=== PATIENT | female | born 1955 | race Caucasian/White ===

== ENCOUNTER → 2020-11-13 08:40 | Outpatient (BNVA) | payer OTHER, SELFPAY | PROVIDERS: PCP Internal Medicine; Visit Provider Hospitalist | DX: J41.8 Mixed simple and mucopurulent chronic bronchitis (principal); A31.9 Mycobacterial infection, unspecified; R91.8 Other nonspecific abnormal finding of lung field | CPT/HCPCS: 99212 ==

== ENCOUNTER → 2021-03-22 09:01 | Outpatient (BNVA) | payer OTHER, SELFPAY | PROVIDERS: PCP Internal Medicine; Visit Provider Hospitalist | DX: R91.8 Other nonspecific abnormal finding of lung field (principal); J41.8 Mixed simple and mucopurulent chronic bronchitis; A31.9 Mycobacterial infection, unspecified | CPT/HCPCS: 99212 ==

== ENCOUNTER 2021-07-23 08:45 | Outpatient (REF) | payer OTHER, SELFPAY ==
--- NOTE | 2021-07-23 10:26 | PFT_ITS ---
FLOWS: FEV1 48% of predicted at 1.12 L. FVC 90% of predicted at 2.75 L. FEV1 to FVC ratio of 0.41. No bronchodilator response. LUNG VOLUMES: Total lung capacity 124% of predicted at 6.11 L. Residual volume 167% of predicted at 3.39 L. Slow vital capacity 94% of predicted at 2.72 L. Expiratory reserve volume 98% of predicted at 0.74 L. Diffusion capacity is moderately decreased. In comparison to pulmonary function test from September of 2019, FEV1 and ERV have been without significant changes; FVC has increased by 0.22 L; total lung capacity has increased by 1.38 L; residual volume has increased by 0.88 L; slow vital capacity has increased by 0.50 L; diffusion capacity has increased by 0.30 mL/minutes/mmHg. IMPRESSION: Severe obstructive ventilatory defect with no bronchodilator response. Increased total lung capacity suggests hyperinflation. Increased residual volume suggests air trapping. Decreased diffusion capacity suggests emphysema. MD MARIO Marshall/MODL / [id number]
== END 2021-07-23 08:46 | disposition home or self-care (01) ==
LOC: HO.RESP 08:45
PROVIDERS: PCP Internal Medicine; Visit Provider Hospitalist
DX: J41.8 Mixed simple and mucopurulent chronic bronchitis (principal)
CPT/HCPCS: 94060; 94727; 94729

== ENCOUNTER → 2021-08-23 09:39 | Outpatient (BNVA) | payer OTHER, SELFPAY | PROVIDERS: PCP Internal Medicine; Visit Provider Hospitalist | DX: J41.8 Mixed simple and mucopurulent chronic bronchitis (principal); R91.8 Other nonspecific abnormal finding of lung field; A31.9 Mycobacterial infection, unspecified | CPT/HCPCS: 99212 ==

== ENCOUNTER → 2021-12-21 08:35 | Outpatient (BNVA) | payer MEDICARE, MEDICAID, SELFPAY | PROVIDERS: PCP Internal Medicine; Visit Provider Hospitalist | DX: Z01.811 Encounter for preprocedural respiratory examination (principal); J41.8 Mixed simple and mucopurulent chronic bronchitis; A31.9 Mycobacterial infection, unspecified | CPT/HCPCS: 99212 ==

== ENCOUNTER → 2022-06-14 09:44 | Outpatient (BNVA) | payer MEDICARE, MEDICAID, SELFPAY | PROVIDERS: PCP Internal Medicine; Visit Provider Hospitalist | DX: J44.0 Chronic obstructive pulmonary disease with (acute) lower respiratory infection (principal); A31.9 Mycobacterial infection, unspecified | CPT/HCPCS: 99212 ==

== ENCOUNTER → 2022-12-06 08:44 | Outpatient (BNVA) | payer OTHER, SELFPAY | PROVIDERS: PCP Internal Medicine; Visit Provider Hospitalist | DX: J44.0 Chronic obstructive pulmonary disease with (acute) lower respiratory infection (principal); A31.9 Mycobacterial infection, unspecified; Z79.899 Other long term (current) drug therapy | CPT/HCPCS: 99212 ==

== ENCOUNTER 2023-11-18 | Outpatient (REF) | payer OTHER, SELFPAY ==
[2023-11-18 08:16] VITALS: PULSE 86; RESP 14; O2SAT 97
--- NOTE | 2023-11-18 10:32 | PFT_ITS ---
Flows: FEV1: 49 % of predicted at 1.09 L FVC: 92 % of predicted at 2.60 L FEV1/FVC: 42 % Bronchodilator response: Absent Volumes: Lung volume measurements incorrect secondary to patient unable to maintain a tight seal on the mouthpiece. Diffusion capacity: Moderately decreased, adjusts to being mildly decreased after correction for alveolar ventilation. Impression: Severe obstructive ventilatory defect with no bronchodilator response. Decreased diffusion capacity suggests emphysema. MTDD
== END 2023-11-18 00:01 | disposition home or self-care (01) ==
LOC: HO.RESP
PROVIDERS: PCP Internal Medicine; Visit Provider Hospitalist
DX: J44.0 Chronic obstructive pulmonary disease with (acute) lower respiratory infection (principal)
CPT/HCPCS: 94010; 94640; 94727; 94729

== ENCOUNTER → 2023-11-18 10:32 | Outpatient (BNV) | payer OTHER, SELFPAY | PROVIDERS: PCP Internal Medicine; Visit Provider Internal Medicine Pulmonary Disease | DX: J44.0 Chronic obstructive pulmonary disease with (acute) lower respiratory infection (principal) | CPT/HCPCS: 94060; 94727; 94729 ==

== ENCOUNTER 2023-12-05 13:54 | Outpatient (AMB) | payer OTHER, SELFPAY ==
--- NOTE | 2023-12-05 14:03 | MHC.OFFVIS ---
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 Hybrid Technologist: Hybrid Technologist offered & declined Accompanied by: Spouse Allergies cephalexin [Keflex] Allergy (Severe, Verified 12/05/23 14:09) Body Aches penicillin V Allergy (Severe, Verified 12/05/23 14:09) Convulsion Medication List - Last Reconciled 12/05/23 by Danyelle Sifuentes LPN albuterol sulfate 90 mcg/actuation 2 puffs inhalation Q6H PRN albuterol sulfate 2.5 mg (3 mL) inhalation Q4-6H PRN fluticasone propionate 50 mcg/actuation (Flonase Allergy Relief) 2 sprays intranasal DAILY 90 days lisinopril 2.5 mg PO DAILY lisinopril 10 mg PO DAILY lorazepam 0.5 mg PO DAILY PRN lovastatin 40 mg PO BEDTIME meclizine 12.5 mg PO TID metoprolol succinate ER 25 mg PO DAILY nebulizers As directed omeprazole 20 mg PO BID Symbicort 160-4.5 mcg/actuation (budesonide-formoterol) 2 puffs PO BID NS tiotropium bromide 2.5 mcg/actuation (Spiriva Respimat) 2 puffs inhalation DAILY 90 days HPI HPI Comments History of Present Illness Details Patient is a 68 y/o woman with a history of COPD, pulmonary nodules and nontuberculous mycobacteria infection. She is status post resection in now with no evidence of any recurrence. She still has some chest discomfort at the site of the surgery on her right side. She did have a pneumothorax that was therefore a significant amount of time after surgery. Now has resolved. She is feeling better. She is no longer requiring the neb treatments. Will try to place her back in inhalers. However, she does not do well with inhaled cortical steroids at a powdered. She gets irritation of the throat and other side effects. Therefore, will have to place her HFA formulation. She has done well Symbicort in the past. She has failed Advair and felt Breo as well as other powder inhalers. Her CT scan of the chest was done we did reviewed in the office. It appears that she does have the severe emphysema primarily upper lung zone in mid lung predominant but still preserving her bases specially on the right. No new nodules appreciated. Her surgical area appears to be completely healed. She still having some pain at that site however. 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 She continues her respiratory therapy. She is maintaining her weight 114. She continues to have a good appetite. This point the patient is being evaluated for parathyroid issues. From pulmonary standpoint I do believe she can handle general anesthesia but the patient does have high risk for perioperative pulmonary complications which include which hypoxia, atelectasis, prolonged mechanical ventilation and pneumonia. Therefore, based on the fact that she is still recovering from her other surgeries my 1st recommendation is for her to avoid surgery if possible. If however surgery is a necessity, then, she is medically optimized from a respiratory status. 12/12/2019 The patient is here for pulmonary follow-up visit. Overall she continues to do well. Denies any shortness of breath at rest. Mild dyspnea on exertion. Denies any significant coughing or any mucus production. She continues on the respiratory therapy. She continues to gain weight. Still has some aching as on the right hemithorax from her surgical site. She did have a CT scan of the chest done at [facility] part of the lung cancer screening program. The did document some small pulmonary nodules. At this point she is going to have a repeat CT scan a year. Otherwise the patient is without any other complaints. 06/16/2020 the patient is here for pulmonary follow-up visit. Overall she is doing okay. She is coughing more lately. Hgae-vj-[id number] severity. Her sputum is clear. She is exercising walking regularly. We again reviewed her pulmonary function studies done demonstrating severe COPD. She definitely does a very well even with the degree of obstruction. 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 She is per the lung cancer screening program and is scheduled for her next CAT scan in October 2020. Will plan to follow up with her after that. In the meantime she continues use Symbicort twice a day in addition to having a rescue inhaler. However, she does not need it. We did talk about plain the Harmonic in order to strong her respiratory muscles. She is going to look into it. 11/13/2020 the patient is here for pulmonary follow-up visit. Overall the patient has been doing okay. She has been complaining of increasing chest congestion and cough. Zioz-[id number] severity. More than before. She also has a little bit increasing shortness of breath. She feels like she is progressing a little bit. She did recently have a CT scan of the chest done at [facility]. Per report she was sent a letter stating that everything was okay. She is scheduled to have a repeat CT scan in a year's time. I will request a copy of the CT scan to look at myself. In the meantime she can be reassured that her CT scan is stable. She does have small pulmonary nodules are still need follow-up. The patient has not noticed any weight loss or any night sweats. I did request that she can try to mild sputum response but she is not able to this time. Will treat her with medication. If the patient continues to have respiratory symptoms will try to get a sputum sample. No evidence of any active mycobacteria infection at this time. 03/22/2021 the patient is here for pulmonary follow-up visit. Overall she is complaining of dyspnea on exertion. Pdme-gf-ssgsyggx severity. Seems to be getting worse. Her congestion has improved. She did complete 3 months of the azithromycin and she has no longer taking it. She continues on the Symbicort which she takes twice a day with a spacer. She finds it very helpful. On examination she does have increased chest tightness and a prolonged expiratory phase. We did talk about pursed the breathing. At this point will have to optimize her respiratory capacity. We did go for brief walking oximetry with the patient maintain a pulse ox 97% with activity in the heart rate did increase to 105 beats per minute. She did have a dyspnea score of for out of 10. patient does not need supplementation with oxygen at this time. we did review her CT scan from October 2020 demonstrating extensive emphysema as well as stable nodules. She will have a repeat CT scan October of 2021. 08/23/2021 the patient is here for a pulmonary follow-up visit. Overall the patient has been doing okay. She has been off the azithromycin. She has noticed increased chest congestion. The mucus is clear. Her weight has been okay although she lost a few lb. Her appetite is still good. She is concerned about the potential mycobacteria infection. We did review her pulmonary function studies. Appears that she still has severe COPD although, based on her PFTs from last year she has a trend improvement in her lung capacity which is reassuring. That being said with her increased cough in the slightly weight loss is not on reasonable to go back on the azithromycin therapy. The patient is due for CT scan in October 2021. Will follow-up sometime after that. 12/21/2021 the patient is here for a pulmonary follow-up visit. Overall she is doing well. She has been off the azithromycin. She did have a CT scan of the chest which we reviewed in the office. It appears that she does not have any suspicious nodules which is reassuring specially off the antibiotic. She does have severe emphysema and she is aware that. She does continue to stay active and try to exercise regularly. However, we talked about the importance of building up her respiratory capacity. Therefore I recommend she consider getting her manic on starting to use it for her respiratory muscle endurance. She continues to be adherent to her respiratory regimen. No plans for any changes at this time. She is scheduled to undergo a parathyroidectomy at [facility]. At this moment the patient is medically optimized from a respiratory status. She does have severe COPD therefore does have increased risk for perioperative pulmonary complications which includes; atelectasis, hypoxia, pneumonia and prolonged mechanical ventilation. At this point the patient has been developing significant osteoporosis and requires surgery for her bone health and physical health in the benefits of surgery outweigh the risks. The patient is able to consent from surgery from a pulmonary standpoint at this time. 06/14/2022 the patient is here for pulmonary follow-up visit. The patient is overall doing well. She had her surgery and she very well. However, in March she developed COVID-19. She started developing a cough. Now her cough persists will productive in nature moderate severity. The white phlegm. Denies any hemoptysis. Her examination demonstrates some wheezing. She would like to hold off on any prednisone. Will go ahead and treated for postviral bacterial infection. But I hear any crackles to be concerned about. She has prior the lung cancer screening program. CT next CAT scans in October 2022 at [facility]. However, if she is worse or no better after the course of antibiotics the patient is to call so we can further evaluate with more imaging studies an earlier time. Her surgery went well and she she will well from her thyroid surgery 12/06/2022 the patient is here for a pulmonary follow-up visit. The patient overall is doing well. She continues use respiratory therapy with good effect. Her weight continues to be stable. Her appetite is good. The patient did have a recent CT scan of the chest that we personally reviewed the report. It appears that she has stable pulmonary nodules. She does have a calcified nodule which consistent with granuloma. No evidence of any active mycobacterial disease which is reassuring. No changes at this time. Will plan to follow-up with her CT scan in a year's time and also follow-up in a year with pulmonary function studies. If the patient has any issues prior to this she is to call the office for an earlier evaluation. 12/05/2023 the patient is here for a pulmonary follow-up visit. The patient has been concerned because she is developing worsening cough in addition to some night sweats. She states that initially when she became sick with the smoldering mycobacterial disease she started with these symptoms. She did recently have a CT scan done at [facility]. However, I do not have it available. I did request from [facility] but has yet to arrive via [employer]. I will give her a call once I have it available. In the meantime we did review her pulmonary function studies. It appears that the patient does have severe COPD. She has severe hyperinflation and air trapping due to the COPD. And also diffusion impairment. We talked about the importance of breathing exercises and helping her with her air trapping. Therefore will go ahead and start her on pulmonary rehab that I believe will have excellent benefits with the patient. In the meantime we also talked about other alternatives including more invasive or semi-invasive procedures such as the [address] valves for help with her significant air trapping as a lung volume reduction intervention. The patient will look into it and will read up in to the benefits and risks of this procedure. She is concerned because when she did have surgery in the past for her pulmonary nodule she did have a prolonged air leak and pneumothorax. The patient will continue with current respiratory therapy. Once I have the CAT scan available I will call her. She has not able to give us any sputum for culture. So if we see any significant changes in the CT scan or any suspicious changes will go ahead and talk to the patient about having a bronchoscopy in order to get some deep cultures. [facility] Medical History (Updated 06/14/22 @ 21:22 by Anton Centeno MD) Hyperparathyroidism, primary Anxiety GERD (gastroesophageal reflux disease) Hyperlipidemia Hypertension Osteoporosis (~2016) Personal history of nicotine dependence Pulmonary nodules Mycobacterial disease COPD (chronic obstructive pulmonary disease) Surgical History (Updated 12/21/21 @ 12:20 by Aileen Moura PA-C) History of unilateral oophorectomy History of lumbar laminectomy History of cholecystectomy History of lung surgery Social History (Updated 12/05/23 @ 14:13 by Danyelle Sifuentes LPN) Patient Tobacco Use Status: Former Tobacco user Tobacco use type: Cigarette Years Smoked: 20 years Review of Systems Const Reports night sweats ENT Denies change in voice, Denies lip swelling, Denies mouth pain, Reports nasal congestion, Reports nasal discharge and Denies tongue swelling Card Denies chest pain and Reports dyspnea on exertion Resp Reports chest congestion, Reports cough and Reports dyspnea on exertion GI Denies abdominal pain Musc Denies no additional complaints Neuro Denies Neuro-related abnormal movements Psych Denies no additional complaints Raad/Lymph Denies easy bleeding and Denies lymphadenopathy Aller/Immun Denies lip swelling and Denies tongue swelling Physical Exam Vital Signs: Last Vital Signs Pulse 90 12/05/23 14:06 BP 116/62 12/05/23 14:06 Pulse Ox 97 12/05/23 14:06 Oxygen Delivery Method Room Air 12/05/23 14:06 BMI result Body Mass Index 23.8 Const General: alert Neck Neck: Yes normal visual inspection, Yes full ROM and Yes no lymphadenopathy Chest Chest palpation & inspection: normal inspection of the chest Resp Effort & Inspection: normal respiratory effort Auscultation: no wheezes and diminished lung sounds Cardio Rate: regular rate Rhythm: regular rhythm Heart sounds: S1 normal heart sound present and S2 normal heart sound present GI Palpation (GI): Soft to palpation and nontender Auscultation: normal bowel sounds Skin General skin exam: rashes and/or lesions noted Assessment & Plan Assessment & Plan (1) COPD (chronic obstructive pulmonary disease): Code(s): J44.9 - Chronic obstructive pulmonary disease, unspecified Qualifiers: COPD type: COPD with acute lower respiratory infection Qualified Code(s): J44.0 - Chronic obstructive pulmonary disease with (acute) lower respiratory infection (2) Mycobacterial disease: Comment: status post treatment. no evidence of any residual disease Code(s): A31.9 - Mycobacterial infection, unspecified Plan Continue Symbicort continue Spiriva short-acting beta agonist as needed LDCT done 11/2023, awaiting results start Pulmonary rehab Consider bronchoscopy for deep cultures F/U 3-4 months Orders: Orders Pulmonary Rehab Today J44.9 - Chronic obstructive pulmonary disease, unspecified Coding Level of Care Code Est Pt Level 4 (06427) Diagnoses Chronic obstructive pulmonary disease with acute lower respiratory infection J44.0 COPD type: COPD with acute lower respiratory infection Mycobacterial disease A31.9 Time Spent (min) 19
[2023-12-05 14:06] VITALS: BP 116/62; PULSE 90; O2SAT 97; BMI 23.8
== END 2023-12-05 14:55 | disposition home or self-care (01) ==
PROVIDERS: PCP Internal Medicine; Visit Provider Hospitalist
DX: J44.0 Chronic obstructive pulmonary disease with (acute) lower respiratory infection (principal); A31.9 Mycobacterial infection, unspecified
CPT/HCPCS: 99214

== ENCOUNTER → 2023-12-05 13:54 | Outpatient (BNVA) | payer OTHER, SELFPAY | PROVIDERS: PCP Internal Medicine; Visit Provider Hospitalist | DX: J44.0 Chronic obstructive pulmonary disease with (acute) lower respiratory infection (principal); A31.9 Mycobacterial infection, unspecified | CPT/HCPCS: 99212 ==

== ENCOUNTER 2024-01-02 09:26 | Outpatient (AMB) | payer OTHER, SELFPAY ==
--- NOTE | 2024-01-02 09:55 | HO.SPINEOV ---
Intake Intake Visit Reasons: spinal cord compression Intake Note: Ms. Zayas is here today c/o neck pain. 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 She is a very nice 68-year-old female who comes in today for evaluation of a 2 year history of progressive numbness in her arms feelings of weakness in her hands. She also has history of vertigo and dizziness. She was worked up in your office and underwent a cervical MRI showing severe spinal cord compression with cord signal change at C6. She was sent in for an urgent evaluation. The patient tells me the symptoms have been going on for about 2 years but getting steadily worse. She does have difficulty opening things and buttoning buttons. Occasionally at nighttime she will have spontaneous myoclonic jerking of her legs. Her bladder seems to be working okay. She does have vertigo with some dizziness but no overt history of frequent falls. She comes in today to review her MRI done at the [facility]. PMH: She has a pulmonary history significant for non tuberculosis mycobacterium. It was discovered a number of years ago on routine imaging where she was found have multiple lung masses. She ultimately underwent a right-sided thoracotomy with a partial lobectomy, cancer was ruled out but ultimately follow-up studies revealed the mycobacteria. She went on antibiotics for 3 months. That seems to have resolved the issue. She is followed by pulmonary at [place] Dr. Centeno. She has a history of COPD as well but only takes inhalers, does not use home oxygen. She does not report any specific shortness of breath. History of hypertension, cholecystectomy, remote history of back surgery. She also has a remote history of MRSA infection on her hands related to some cuts that ultimately ended up making her septic and needing IV antibiotics. That was many years ago. She also has a history of osteoporosis, history of hyperparathyroidism with parathyroidectomy.. Denies any history of heart attacks, strokes, kidney disorders, liver , bleeding disorders, blood clots or GI issues. Social hx: She quit smoking 13 years ago, does not drink or use any recreational drugs Medications: Metoprolol, lovastatin, lisinopril, meclizine, omeprazole, lorazepam, multivitamin, vitamin-C, Citracal, Symbicort, Spiriva Allergies: Penicillin and Keflex Physical exam: She is awake alert oriented no acute distress, she has weakness of her right hand and her right triceps. I would rate these as 4/5. The rest of her motor examination in the upper lower extremities is normal. She has 3+ reflexes in the upper extremities with no Ary sign and no clonus. Gait is normal. Imaging review: Cervical MRI done at [place] in 2023 shows multilevel degenerative disc disease with posterior ligamentous infolding, she has moderate stenosis at C4-5 she has severe stenosis at C5-6 with cord signal change behind the body at C6 at moderate stenosis at C6-7. Impression: 68-year-old female presents with 2 years of progressive myelopathic symptoms with numbness going down her arms weakness of her hands bilaterally subjectively, on my exam there is only weakness on the right hand in the right triceps. She has cord signal change behind the body of C6 secondary to severe stenosis at C5-6. She also has moderate stenosis at C4-5 and C6-7. I sat down with the patient and reviewed her imaging with her. It is clear that she is going to need surgery based on her history, exam and her imaging. At this point I am not sure if Dr. Phipps would choose to go from the front with an anterior cervical fusion or cervical laminectomy. I would like to review the images with him get back to the patient with a final plan. We did briefly discuss the risks and benefits of both operations as well as recovery. She understands that surgery is important because the cord signal change we see in the spinal cord suggests that there is chronic damage done and that if we continue to let this progress she may have worsening permanent symptoms that do not improve over time. She understands that the goal of surgery is to prevent further worsening, and that it may not necessarily bring her back to 100% function. I will call the patient once I have a chance to finalize the plan with Dr. Phipps. She will likely need some kind of preoperative note and clearance from your office before surgery. Also we will need to keep a minor history of MRSA, she will need vancomycin at the time of surgery. Thank you for allowing us to care for your patient. The total time spent with this visit with this patient was 45 minutes reviewing history, physical exam, cervical spine imaging review, and implementation of treatment plan or further diagnostic testing Sebas Phipps MD,PhD [facility] Coding Level of Care Code New Pt Level 4 (20856) Diagnoses Cervical myelopathy G95.9
== END 2024-01-02 10:44 | disposition home or self-care (01) ==
PROVIDERS: PCP Internal Medicine; Referring Provider Physician Assistant; Visit Provider Physician Assistant
DX: G95.9 Disease of spinal cord, unspecified (principal)
CPT/HCPCS: 99204

== ENCOUNTER → 2024-01-02 09:26 | Outpatient (BNVA) | payer OTHER, SELFPAY | PROVIDERS: Visit Provider Physician Assistant | DX: G95.9 Disease of spinal cord, unspecified (principal) | CPT/HCPCS: 99202 ==

== ENCOUNTER 2024-03-05 09:29 | Outpatient (AMB) | payer OTHER, SELFPAY ==
[2024-03-05 09:34] VITALS: BP 118/60; PULSE 79; O2SAT 97; BMI 23.4
--- NOTE | 2024-03-05 09:34 | MHC.OFFVIS ---
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 She is status post resection in now with no evidence of any recurrence. She still has some chest discomfort at the site of the surgery on her right side. She did have a pneumothorax that was therefore a significant amount of time after surgery. Now has resolved. She is feeling better. She is no longer requiring the neb treatments. Will try to place her back in inhalers. However, she does not do well with inhaled cortical steroids at a powdered. She gets irritation of the throat and other side effects. Therefore, will have to place her HFA formulation. She has done well Symbicort in the past. She has failed Advair and felt Breo as well as other powder inhalers. Her CT scan of the chest was done we did reviewed in the office. It appears that she does have the severe emphysema primarily upper lung zone in mid lung predominant but still preserving her bases specially on the right. No new nodules appreciated. Her surgical area appears to be completely healed. She still having some pain at that site however. 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 She continues her respiratory therapy. She is maintaining her weight 114. She continues to have a good appetite. This point the patient is being evaluated for parathyroid issues. From pulmonary standpoint I do believe she can handle general anesthesia but the patient does have high risk for perioperative pulmonary complications which include which hypoxia, atelectasis, prolonged mechanical ventilation and pneumonia. Therefore, based on the fact that she is still recovering from her other surgeries my 1st recommendation is for her to avoid surgery if possible. If however surgery is a necessity, then, she is medically optimized from a respiratory status. 12/06/2022 the patient is here for a pulmonary follow-up visit. The patient overall is doing well. She continues use respiratory therapy with good effect. Her weight continues to be stable. Her appetite is good. The patient did have a recent CT scan of the chest that we personally reviewed the report. It appears that she has stable pulmonary nodules. She does have a calcified nodule which consistent with granuloma. No evidence of any active mycobacterial disease which is reassuring. No changes at this time. Will plan to follow-up with her CT scan in a year's time and also follow-up in a year with pulmonary function studies. If the patient has any issues prior to this she is to call the office for an earlier evaluation. 12/05/2023 the patient is here for a pulmonary follow-up visit. The patient has been concerned because she is developing worsening cough in addition to some night sweats. She states that initially when she became sick with the smoldering mycobacterial disease she started with these symptoms. She did recently have a CT scan done at [facility]. However, I do not have it available. I did request from [facility] but has yet to arrive via effects. I will give her a call once I have it available. In the meantime we did review her pulmonary function studies. It appears that the patient does have severe COPD. She has severe hyperinflation and air trapping due to the COPD. And also diffusion impairment. We talked about the importance of breathing exercises and helping her with her air trapping. Therefore will go ahead and start her on pulmonary rehab that I believe will have excellent benefits with the patient. In the meantime we also talked about other alternatives including more invasive or semi-invasive procedures such as the [address] valves for help with her significant air trapping as a lung volume reduction intervention. The patient will look into it and will read up in to the benefits and risks of this procedure. She is concerned because when she did have surgery in the past for her pulmonary nodule she did have a prolonged air leak and pneumothorax. The patient will continue with current respiratory therapy. Once I have the CAT scan available I will call her. She has not able to give us any sputum for culture. So if we see any significant changes in the CT scan or any suspicious changes will go ahead and talk to the patient about having a bronchoscopy in order to get some deep cultures. 03/05/2024 the patient is here for a pulmonary follow-up visit. The patient has been doing very well. She continues to participate in pulmonary rehabilitation. This has been very affecting beneficial for her. She continues with respiratory therapy which includes Symbicort and Spiriva. She does not use her albuterol regularly. Typically less than 2 times a week. The patient is having neurological symptoms due to severe spinal stenosis in the cervical spine. She did see a software configuration specialist. It looks like she is going to need surgery. At this point the patient is medically optimized from a respiratory status in January 2 proceed with surgery. She does have moderate risk for perioperative pulmonary complications which include; bronchospasms, atelectasis, hypoxia, pneumonia, prolonged mechanical ventilation. Although these are less likely since she is doing well. At this point I would have her proceed with surgery and anesthesia. She needs to get this taken care of based on the severity. The patient will continue with pulmonary rehabilitation afterwards whenever safe from a surgical standpoint. [facility] Medical History (Updated 01/02/24 @ 10:41 by MILO Meza) Hyperparathyroidism, primary Anxiety GERD (gastroesophageal reflux disease) Hyperlipidemia Hypertension Osteoporosis (~2015) Personal history of nicotine dependence Pulmonary nodules Mycobacterial disease COPD (chronic obstructive pulmonary disease) Surgical History (Updated 12/21/21 @ 12:20 by Aileen Moura PA-C) History of unilateral oophorectomy History of lumbar laminectomy History of cholecystectomy History of lung surgery Social History (Updated 12/05/23 @ 14:13 by Danyelle Sifuentes LPN) Patient Tobacco Use Status: Former Tobacco user Tobacco use type: Cigarette Years Smoked: 20 years Review of Systems Const Denies night sweats and Reports weight gain ENT Denies change in voice, Denies lip swelling, Denies mouth pain, Reports nasal congestion, Reports nasal discharge and Denies tongue swelling Card Denies chest pain and Reports dyspnea on exertion Resp Denies chest congestion, Reports cough and Reports dyspnea on exertion GI Denies abdominal pain Musc Denies no additional complaints Neuro Denies Neuro-related abnormal movements Psych Denies no additional complaints Raad/Lymph Denies easy bleeding and Denies lymphadenopathy Aller/Immun Denies lip swelling and Denies tongue swelling Physical Exam Vital Signs: Last Vital Signs Pulse 79 03/05/24 09:34 BP 118/60 03/05/24 09:34 Pulse Ox 97 03/05/24 09:34 Oxygen Delivery Method Room Air 03/05/24 09:34 BMI result Body Mass Index 23.4 Const General: alert Neck Neck: Yes normal visual inspection, Yes full ROM and Yes no lymphadenopathy Chest Chest palpation & inspection: normal inspection of the chest Resp Effort & Inspection: normal respiratory effort Auscultation: no wheezes and diminished lung sounds Cardio Rate: regular rate Rhythm: regular rhythm Heart sounds: S1 normal heart sound present and S2 normal heart sound present GI Palpation (GI): Soft to palpation and nontender Auscultation: normal bowel sounds Skin General skin exam: rashes and/or lesions noted Assessment & Plan Assessment & Plan (1) Pre-op chest exam: Code(s): Z01.811 - Encounter for preprocedural respiratory examination Category: Medical (2) COPD (chronic obstructive pulmonary disease): Code(s): J44.9 - Chronic obstructive pulmonary disease, unspecified Category: Medical Qualifiers: COPD type: COPD with acute lower respiratory infection Qualified Code(s): J44.0 - Chronic obstructive pulmonary disease with (acute) lower respiratory infection (3) Mycobacterial disease: Comment: status post treatment. no evidence of any residual disease Code(s): A31.9 - Mycobacterial infection, unspecified Category: Medical Plan The patient does have severe COPD, but has been doing well, exercising regularly in pulmonary rehab. The patient does have increased risk for perioperative pulmonary complications. Currently clinically stable and medically maximized. She is able to proceed with anesthesia and surgery. Continue Symbicort continue Spiriva short-acting beta agonist as needed LDCT continue Pulmonary rehab once stable from her cervical surgery F/U 4-6 months Medications: Changed From Symbicort 160-4.5 mcg/actuation (budesonide-formoterol) 2 puffs PO BID 30.6 grams 0RF NS J44.9 - Chronic obstructive pulmonary disease, unspecified To Symbicort 160-4.5 mcg/actuation (budesonide-formoterol) 2 puffs PO BID 30.6 grams 3RF 90 days NS J44.9 - Chronic obstructive pulmonary disease, unspecified Refilled fluticasone propionate 50 mcg/actuation (Flonase Allergy Relief) administer into each nostril 2 sprays intranasal DAILY 48 mL 3RF 90 days tiotropium bromide 2.5 mcg/actuation (Spiriva Respimat) 2 puffs inhalation DAILY 3 ea 3RF 90 days Coding Level of Care Code Est Pt Level 4 (78790) Diagnoses Pre-op chest exam Z01.811 Chronic obstructive pulmonary disease with acute lower respiratory infection J44.0 COPD type: COPD with acute lower respiratory infection Mycobacterial disease A31.9 Time Spent (min) 17
== END 2024-03-05 09:53 | disposition home or self-care (01) ==
PROVIDERS: PCP Internal Medicine; Visit Provider Hospitalist
DX: Z01.811 Encounter for preprocedural respiratory examination (principal); J44.0 Chronic obstructive pulmonary disease with (acute) lower respiratory infection; A31.9 Mycobacterial infection, unspecified
CPT/HCPCS: 99214

== ENCOUNTER → 2024-03-05 09:29 | Outpatient (BNVA) | payer OTHER, SELFPAY | PROVIDERS: PCP Internal Medicine; Visit Provider Hospitalist | DX: Z01.811 Encounter for preprocedural respiratory examination (principal); J44.0 Chronic obstructive pulmonary disease with (acute) lower respiratory infection; A31.9 Mycobacterial infection, unspecified | CPT/HCPCS: 99212 ==

== ENCOUNTER 2024-03-14 08:30 | Outpatient (RCR) | payer OTHER, SELFPAY | END 2024-05-10 09:02 | disposition home or self-care (01) | LOC: HO.PR 08:30 | PROVIDERS: Visit Provider Hospitalist | DX: J44.9 Chronic obstructive pulmonary disease, unspecified (principal) | CPT/HCPCS: 94618; 94625; 99212 ==

== ENCOUNTER 2024-04-04 09:34 | Day surgery (SDC) | payer OTHER, SELFPAY ==
[2024-03-21 12:05] VITALS: BP 138/60; PULSE 77; RESP 18; O2SAT 98; BMI 23.9
[2024-04-04] VITALS (7 sets, daily range): BP systolic 127–143; BP diastolic 60–71; PULSE 70–90; RESP 14–18; TEMP 36.1–36.6; O2SAT 94–100; BMI 23.8
--- NOTE | ~2024-04-04 | FL_ITS ---
EXAMINATION: XR FLUOROSCOPY WITH IMAGES CLINICAL INFORMATION: C4-C5, C5-C6 laminectomy. COMPARISON: None available. TECHNIQUE: Fluoroscopy Supervised By: Dr. Reji Phipps. Fluoroscopy Time: 2.9 minutes. Cumulative Dose: 0.4315 mGy. DAP: 0.1575 Gycm2. Images: 2. FINDINGS: Intraoperative fluoroscopy and spot films were performed during a procedure in the OR. Probes are seen at the C3-C4 level with another probe at the C6-C7 level. Please correlate with Dr. Collins's report for complete details. FL/FL guidance in OR IMPRESSION: Intraoperative fluoroscopy and spot films were obtained. Please see Dr. Collins's report for complete details.
[2024-04-04] MEDS: methocarbamoL 750 MG TABLET PO (10:47)
[2024-04-04] MEDS: Lactated Ringers 1,000 ML 100 ML IVCONT (10:47)
[2024-04-04] MEDS: Gabapentin 300 MG CAPSULE PO (10:47)
[2024-04-04] MEDS: vancomycin HCL 1,000 MG in 0.9 % Sodium Chloride 250 ML 270 MG IV (10:48)
--- NOTE | 2024-04-04 10:49 | MHC.SHP ---
Pre-Procedural Eval Section A - 24 Hr Update-Section A only Date of Service: 04/04/24 Section B - Complete if H&P > 30 days Chief Complaint: Disease of spinal cord, unspecified Details of Present Illness: Progressive cervical myelopathy Allergies: Allergies Allergy/AdvReac Type Severity Reaction Status Date / Time cephalexin [Keflex] Allergy Severe convulsions Verified 04/04/24 10:19 penicillin V Allergy Severe Convulsion Verified 04/04/24 10:19 Review of Systems Sugical H&P ROS: Negative: Constitution, Cardiovascular, Respiratory, Psychiatric, Hem-Onc, Allergic/Immunologic, Gastrointestinal, Genitourinary, Musculoskeletal, Integumentary, Endocrine and Eyes/Ears/Nose/Throat and Yes, Specify: Neurological (Dexterity loss) Exam Surgical H&P Exam: Normal: HEENT, Normal: Extremities and Normal: Skin, Not Evaluated: Heart, Not Evaluated: Lungs and Not Evaluated: Abdomen and Significant Findings: Neurological (Hyperreflexia) Plan Diagnosis/Plan: Unchanged C4-C6 laminectomy Time Spent With Patient Time: Total time managing care of this patient today __7__ minutes.
--- NOTE | 2024-04-04 11:15 | P.CONAN_ITS ---
Documented by User: Nancy Posada NP 04/02/24 15:32 HPI - Anesthesia Eval Consult details Narrative: 68yo F for C4-5,C5-6 Laminectomy, 04/04/24 No recent illness No CP with > 4 mets Medically optimized per PCP Pulmo optimized. Follows [facility] pulmo and participates in pulmo rehab Lung mass s/p RUL Wedge resection 2019 COPD. Occasional SALCIDO but able to walk 15 mins on treadmill and do stairs. Scheduled BID inhalers. Rare albuterol. GERD: controlled with ppi Vertigo: Meclizine daily. Woke up with severe vertigo after parathyroidectomy 2021 [facility] Active Problems Active Problems: All Active Problems Cervical myelopathy (Acute) Pre-op chest exam (Acute) Hyperparathyroidism, primary (Acute) Pulmonary nodules (Acute) Mycobacterial disease (Acute) COPD (chronic obstructive pulmonary disease) (Acute) Personal history of nicotine dependence (Acute) Past Medical History Medical History (Updated 03/21/24 @ 12:04 by Lizz Church RN) Vertigo History of MRSA infection SOB (shortness of breath) On beta salena at home Hyperparathyroidism, primary Anxiety GERD (gastroesophageal reflux disease) Hyperlipidemia Hypertension Osteoporosis (~2015) Personal history of nicotine dependence Pulmonary nodules Mycobacterial disease COPD (chronic obstructive pulmonary disease) Family History Family history of problems with anesthesia: No Surgical History Surgical History (Updated 03/21/24 @ 11:56 by Lizz Church RN) Hx of parathyroidectomy H/O colonoscopy History of esophagogastroduodenoscopy (EGD) Hx of exploratory laparotomy Hx of tubal ligation History of lumbar laminectomy History of cholecystectomy History of lung surgery History of Problems with Anesthesia: No (Difficult to wake after demerol endoscopy) Social History Social History (Updated 12/05/23 @ 14:13 by Danyelle Sifuentes LPN) Are you a primary home care music therapist to a significant other at home: No Do you presently have visiting nurse or other home services: No Patient Tobacco Use Status: Former Tobacco user Tobacco use type: Cigarette Years Smoked: 20 years Use of substances other than those prescribed or required for medical reasons: No Have you been hit, kicked, punched, or otherwise hurt by someone within the past year? If so, by whom?: No Are you DNR?: No Advance Directives: No Advance Directives Information Provided: Yes Advance Directives on File: No Recently lost weight without trying: No Nutrition Risks: No Nutritional Risk Patient : No : No Poor oral hygiene: Yes (full upper denture and partial bottom) Meds Allergies Allergy/AdvReac Type Severity Reaction Status Date / Time cephalexin [Keflex] Allergy Severe convulsions Verified 04/04/24 10:19 penicillin V Allergy Severe Convulsion Verified 04/04/24 10:19 Home Medications ?Medication ?Instructions ?Recorded ?Confirmed ?Last Taken ?Type lorazepam 0.5 mg tablet 0.5 mg PO DAILY PRN anxiety 11/13/20 03/21/24 04/04/24 History lovastatin 40 mg tablet 40 mg PO BEDTIME 11/13/20 03/21/24 Unknown History metoprolol succinate 25 mg 25 mg PO DAILY 11/13/20 03/21/24 04/04/24 History tablet,extended release 24 hr omeprazole 20 mg capsule,delayed 20 mg PO DAILY 11/13/20 03/21/24 04/04/24 History release lisinopril 10 mg tablet 15 mg PO BEDTIME 03/22/21 03/21/24 Unknown History meclizine 12.5 mg tablet 6.25 mg PO TID 12/06/22 03/21/24 Unknown History nebulizers 12/06/22 Unknown History multivitamin 1 tab PO DAILY 03/05/24 03/21/24 Unknown History ascorbic acid (vitamin C) 250 mg 250 mg PO DAILY 03/21/24 03/21/24 Unknown History tablet (Vitamin C) cholecalciferol (vitamin D3) 25 25 mcg PO DAILY 03/21/24 03/21/24 Unknown History mcg (1,000 unit) capsule (Vitamin D3) Exam Height,Weight and Vital Signs: Height 5 ft 2.5 in Weight 60.328 kg Last Vital Signs Pulse 77 03/21/24 12:05 Resp 18 03/21/24 12:05 BP 138/60 03/21/24 12:05 Pulse Ox 98 03/21/24 12:05 O2 Del Method Room Air 03/21/24 12:05 Pertinent Lab Results Pertinent Lab Results: CBC and CMP 02/2024 from outside facility [place] Narrative Narrative: EKG 02/2024 SR @ 74 Abnormal R wave progression PFT 10/2023 Flows: FEV1: 49 % of predicted at 1.09 L FVC: 92 % of predicted at 2.60 L FEV1/FVC: 42 % Bronchodilator response: Absent Volumes: Lung volume measurements incorrect secondary to patient unable to maintain a tight seal on the mouthpiece. Diffusion capacity: Moderately decreased, adjusts to being mildly decreased after correction for alveolar ventilation. Impression: Severe obstructive ventilatory defect with no bronchodilator response. Decreased diffusion capacity suggests emphysema Airway Mallampati Class: II TM Dist: >3cm Neck ROM: Limited Denture: Upper Partial: Lower Heart: RRR Lungs: CTAB Assessment and Plan Assessment Anesthesia Assessment: Anesthesia Plan Discussed and PAT Visit Final Anesthetic Review Family History of Problems with Anesthesia: No History of Problems with Anesthesia: No (Difficult to wake after demerol endoscopy) Documented by User: Ruth Mathur DO 04/04/24 11:19 [facility] Past Medical History Medical History (Updated 03/21/24 @ 12:04 by Lizz Church RN) Vertigo History of MRSA infection SOB (shortness of breath) On beta salena at home Hyperparathyroidism, primary Anxiety GERD (gastroesophageal reflux disease) Hyperlipidemia Hypertension Osteoporosis (~2015) Personal history of nicotine dependence Pulmonary nodules Mycobacterial disease COPD (chronic obstructive pulmonary disease) Family History Family history of problems with anesthesia: No Surgical History Surgical History (Updated 03/21/24 @ 11:56 by Lizz Church RN) Hx of parathyroidectomy H/O colonoscopy History of esophagogastroduodenoscopy (EGD) Hx of exploratory laparotomy Hx of tubal ligation History of lumbar laminectomy History of cholecystectomy History of lung surgery History of Problems with Anesthesia: No (Difficult to wake and PONV after demerol endoscopy) Social History Social History (Updated 12/05/23 @ 14:13 by Danyelle Sifuentes LPN) Are you a primary home care music therapist to a significant other at home: No Do you presently have visiting nurse or other home services: No Patient Tobacco Use Status: Former Tobacco user Tobacco use type: Cigarette Years Smoked: 20 years Use of substances other than those prescribed or required for medical reasons: No Have you been hit, kicked, punched, or otherwise hurt by someone within the past year? If so, by whom?: No Are you DNR?: No Advance Directives: No Advance Directives Information Provided: Yes Advance Directives on File: No Recently lost weight without trying: No Nutrition Risks: No Nutritional Risk Patient : No : No Poor oral hygiene: Yes (full upper denture and partial bottom) Meds Allergies Allergy/AdvReac Type Severity Reaction Status Date / Time cephalexin [Keflex] Allergy Severe convulsions Verified 04/04/24 10:19 penicillin V Allergy Severe Convulsion Verified 04/04/24 10:19 Home Medications ?Medication ?Instructions ?Recorded ?Confirmed ?Last Taken ?Type lorazepam 0.5 mg tablet 0.5 mg PO DAILY PRN anxiety 11/13/20 03/21/24 04/04/24 History lovastatin 40 mg tablet 40 mg PO BEDTIME 11/13/20 03/21/24 Unknown History metoprolol succinate 25 mg 25 mg PO DAILY 11/13/20 03/21/24 04/04/24 History tablet,extended release 24 hr omeprazole 20 mg capsule,delayed 20 mg PO DAILY 11/13/20 03/21/24 04/04/24 History release lisinopril 10 mg tablet 15 mg PO BEDTIME 03/22/21 03/21/24 Unknown History meclizine 12.5 mg tablet 6.25 mg PO TID 12/06/22 03/21/24 Unknown History nebulizers 12/06/22 Unknown History multivitamin 1 tab PO DAILY 03/05/24 03/21/24 Unknown History ascorbic acid (vitamin C) 250 mg 250 mg PO DAILY 03/21/24 03/21/24 Unknown History tablet (Vitamin C) cholecalciferol (vitamin D3) 25 25 mcg PO DAILY 03/21/24 03/21/24 Unknown History mcg (1,000 unit) capsule (Vitamin D3) Exam Exam Date and Time: April 04, 2024 1112 Height,Weight and Vital Signs: Height 5 ft 2.5 in Weight 60.328 kg Last Vital Signs Pulse 77 03/21/24 12:05 Resp 18 03/21/24 12:05 BP 138/60 03/21/24 12:05 Pulse Ox 98 03/21/24 12:05 O2 Del Method Room Air 03/21/24 12:05 Height 5 ft 2.5 in Weight 59.874 kg Vital Signs Pulse Rate 77 03/21/24 12:05 Respiratory Rate 18 03/21/24 12:05 Blood Pressure 138/60 03/21/24 12:05 Pulse Oximetry 98 03/21/24 12:05 Oxygen Delivery Method Room Air 03/21/24 12:05 Temperature 97.5 F 04/04/24 10:21 Pulse Rate 90 04/04/24 10:21 Respiratory Rate 18 04/04/24 10:21 Blood Pressure 136/71 04/04/24 10:21 Pulse Oximetry 96 04/04/24 10:21 Oxygen Delivery Method Room Air 04/04/24 10:21 Airway Mallampati Class: II TM Dist: >3cm Neck ROM: Limited Denture: Upper Partial: Lower Heart: S1S2 Assessment and Plan Assessment Anesthesia Assessment: Anesthesia Plan Discussed and Chart Reviewed Final Anesthetic Review Family History of Problems with Anesthesia: No History of Problems with Anesthesia: No (Difficult to wake and PONV after demerol endoscopy) NPO: Yes ASA Class: III Final Preanesthetic Review: No Changes in Pt Med Stat, Meds/Allgs Chart Reviewed, Consent Obtained/Reviewed and Anes Risks/Benef Reviewed Patient Risk: Intermediate Procedure Risk: Intermediate Anesthetic Plan Anesthetic Plan: GA and Agree w/ Assess. and Plan Disposition: Standard PACU
--- NOTE | 2024-04-04 13:06 | W.PM.OPN ---
Operative Note Operative Note Date of Service: 04/04/24 Narrative: Preoperative Diagnosis: cervical myelopathy Operation: C4-C6 laminectomy Consent Informed Consent was obtained for this operation. I have explained the nature, purpose and benefits of the operation. I have discussed the risks and benefit of the operation including possible complications or adverse events with patient/family. Alternative(s) were discussed with the patient with their relative benefits and risks as well as the consequences of not accepting the operation were included in obtaining consent. Surgeon: HANNAH AQUINO MD, PHD Procedure Assisted By: MILO Gleason Description of Procedure This 68-year-old female suffering from signs of cervical myelopathy. The MRI shows severe spinal cord compression and myelomalacia from C4-C6. The patient was offered a posterior C4-C6 cervical laminectomy to make sure that the spinal cord has the most space for recover. The procedure complications were explained. The patient was consented. The patient was brought to the operating room and endotracheally intubated. The patient was turned in prone position on the gel rolls with the head fixated in Yu. Prep and drape was done followed by timeout. A midcervical incision was made. Dissection was carried down the midline to avoid blood loss. The paravertebral muscles were released to expose the C4-C6 laminae in preparation for the laminectomy. An x-ray confirmed the correct levels. A [place] was used to remove the spinous processi in preparation for the laminectomy. A # 2. and 3 [place] were used to complete a C4-C6 laminectomy. The laminectomy was extended laterally near flush with the pedicles. This resulted in good decompression of the spinal cord. Extensive hemostasis was done after which the physician video library assistant closed the fascia and subcutaneous layer with 2-0 Vicryl. [place] were used to approximate the incision. All sponge and needle counts were correct. The Yu was removed. Patient was extubated and transported in a stable base to the recover room Anesthesia: General Estimated Blood Loss (ml): 25 mL Duration of Surgery: Under 60 Minutes Postoperative Plan: Discharge to home
--- NOTE | 2024-04-04 13:23 | P.DS_ITS ---
DS: Providers Provider Date of Service: 04/04/24 Primary care physician: Unknown Physician DS: Summary Time Attestation Discharge Coordination Time (in mins): 15 Quality: Safe Use of Opioids Does Pt have an Active Cancer Diagnosis on the Problem List?: No Quality: Stroke Does the patient have a stroke diagnosis?: No Physical Exam Vital Signs: Vital Signs: Last Vital Signs Temp 97.5 F 04/04/24 10:21 Pulse 90 04/04/24 10:21 Resp 18 04/04/24 10:21 BP 136/71 04/04/24 10:21 Pulse Ox 96 04/04/24 10:21 O2 Del Method Room Air 04/04/24 10:21 BMI result Body Mass Index 23.8 Discharge Plan Discharge Patient Disposition: Home, Self-Care Referrals: Physician,Unknown J [Primary Care Provider] - 1 Week Discharge Medications: New oxycodone 5 mg tablet 5 mg PO Q6H PRN (Reason: severe pain (scale score 7-10)) Qty: 30 0RF Rx Instructions: Partial Fill upon patient request. Continued albuterol sulfate 2.5 mg /3 mL (0.083 %) solution for nebulization 2.5 mg inhalation Q4-6H PRN (Reason: shortness of breath or wheezing) Qty: 180 0RF albuterol sulfate 90 mcg/actuation HFA aerosol inhaler 2 puff inhalation Q6H PRN (Reason: shortness of breath or wheezing) Qty: 1 0RF ascorbic acid (vitamin C) [Vitamin C] 250 mg Tablet 250 mg PO DAILY cholecalciferol (vitamin D3) [Vitamin D3] 25 mcg (1,000 unit) Capsule 25 mcg PO DAILY lisinopril 10 mg tablet 15 mg PO BEDTIME metoprolol succinate 25 mg tablet extended release 24 hr 25 mg PO DAILY omeprazole 20 mg capsule,delayed release(DR/EC) 20 mg PO DAILY lovastatin 40 mg tablet 40 mg PO BEDTIME lorazepam 0.5 mg tablet 0.5 mg PO DAILY PRN (Reason: anxiety) meclizine 12.5 mg tablet 6.25 mg PO TID (DME) nebulizers Misc See Rx Instructions .ROUTE Rx Instructions: As directed multivitamin Tablet 1 tab PO DAILY fluticasone propionate [Flonase Allergy Relief] 50 mcg/actuation spray,suspension 2 spray intranasal DAILY 90 Days Qty: 48 3RF Rx Instructions: administer into each nostril budesonide-formoterol [Symbicort] 160-4.5 mcg/actuation HFA aerosol inhaler 2 puff PO BID 90 Days Qty: 30.6 3RF Spiriva Respimat 2.5 mcg/actuation mist 2 puff inhalation DAILY 90 Days Qty: 3 3RF Discharge Orders: Discharge Order (Routine); Ordered 04/04/24 Ordered By: Mayito Acuna Diet: Advance to usual diet Activity on Discharge: As tolerated Activity Restrictions/Additional Instructions: After your spinal surgery we ask you to observe the following restrictions/guidelines: Activity: It is normal to feel some discomfort as you increase your activity, but that will improve with time. We ask you avoid heavy lifting or acitivities that cause pain. As a general rule, 8lbs is a safe limit for lifting right after surgery. Walk as much as you feel comfortable but not to exhaustion. You will feel extra tired the first few days after surgery. Stay well hydrated. It is OK to walk up and down stairs You may return to driving when you are off narcotics (such as vicodin, oxycodone, dilaudid, etc), and you are back to normal functional capacity. If y ou have any concerns please check with office before driving. Return to work is specific to each patient and each surgery, so please speak with your doctor/PA at first follow up. Please bring paperwork such as FMLA at that time if you need it filled out. Medications: We will give you a short supply of narcotics after surgery (usually one weeks worth). If you need more please call the office but do not use more than prescribed. You will need to give our office 48 hours notice if you need narcotics refilled and we do not fill narcotics on weekends or evenings. If you are on a narcotic, it is a good idea to take a stool softener such as colace or senna to avoid constipation If you take blood thinner such as aspirin, Plavix, Coumadin, Effient, Eliquis etc for conditions such as Afib, DVT, Pulmonary embolus, coronary disease, stents etc please speak with your surgeon about specific details as to when you can resume these medications. You can resume NSAIDs on post op day 1 (eg: Motrin, Naproxen, etc). Follow up: Please call the office, , after surgery to arrange a 3 week follow up for wound check. Wound Care: You may remove your dressing on the first day after surgery. ?You may ?leave open to air. Please do not remove the steri strips underneath. they will fall off on their own in one week. IT IS NORMAL FOR THE WOUND TO OOZE OR BE BLOODY FOR A FEW DAYS AFTER SURGERY. ?IF THIS HAPPENS JUST PLACE NEW DRESSING OVER IT TO AVOID STAINING CLOTHES. You may shower on post op day # 1 We ask that you do not let the water soak the wound. If it does get wet, just towel dry lightly. Please do not scrub your incision or place any type of chemical/ointment on the wound. No tub baths, pools or jacuzzis for one month. If you have any leaking or redness from your wound, or fevers, please call the office. Print Language: Portuguese
== END 2024-04-04 15:00 | disposition home or self-care (01) ==
PROVIDERS: Visit Provider Neurological Surgery
PROC: (CPT 63045; principal; 2024-04-04 13:30)
DX: G95.9 Disease of spinal cord, unspecified (principal); M50.021 Cervical disc disorder at C4-C5 level with myelopathy; M50.022 Cervical disc disorder at C5-C6 level with myelopathy; R20.0 Anesthesia of skin; M62.81 Muscle weakness (generalized); R42 Dizziness and giddiness; G25.3 Myoclonus; J44.9 Chronic obstructive pulmonary disease, unspecified; Z90.2 Acquired absence of lung [part of]; I10 Essential (primary) hypertension; M81.0 Age-related osteoporosis without current pathological fracture; Z86.19 Personal history of other infectious and parasitic diseases; Z86.14 Personal history of Methicillin resistant Staphylococcus aureus infection; Z79.51 Long term (current) use of inhaled steroids; Z79.899 Other long term (current) drug therapy; Z98.890 Other specified postprocedural states; Z88.0 Allergy status to penicillin; Z88.1 Allergy status to other antibiotic agents; Z87.891 Personal history of nicotine dependence
CPT/HCPCS: 63045; 63048; J0131; J1100; J2250; J2371; J2405; J2704; J3010; J3370

== ENCOUNTER → 2024-04-04 09:34 | Outpatient (BNV) | payer OTHER, SELFPAY | PROVIDERS: Visit Provider Neurological Surgery | DX: M50.021 Cervical disc disorder at C4-C5 level with myelopathy (principal); M50.022 Cervical disc disorder at C5-C6 level with myelopathy | CPT/HCPCS: 63045; 63048; 99499 ==

== ENCOUNTER 2024-04-26 10:41 | Outpatient (AMB) | payer OTHER, SELFPAY ==
--- NOTE | 2024-04-26 11:05 | A.SPINEOV_ITS ---
Intake Visit Reasons: 1st post op Intake Note: Ms. Zayas is here today for her 1st post-op appointment. Health Technician Required: No Allergies cephalexin [Keflex] Allergy (Severe, Verified 04/04/24 10:19) convulsions penicillin V Allergy (Severe, Verified 04/04/24 10:19) Convulsion Assessment & Plan Assessment & Plan (1) Cervical myelopathy: Code(s): G95.9 - Disease of spinal cord, unspecified Category: Medical Plan Mrs Zayas is 2 weeks out from her C4-6 laminectomy. She is here for staple removal today. She has noticed some improvement in the numbness of her arms and her walking. She also reports that her vertigo went away. This is interesting as I had not predicted this before surgery but I am very pleased that she somehow no longer has that symptom. Her wound is healed up beautifully, dereje were removed without incident. 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 She is still slightly off balance. I told her it may take up to a year to know the final results of the surgery but that she should just continue on with activities as she tolerates and I would like to see her back in 6 weeks for final postoperative visit. Sebas Phipps MD, PhD [facility] Coding Level of Care Code Global (90996) Diagnoses Cervical myelopathy G95.9
== END 2024-04-26 11:35 | disposition home or self-care (01) ==
PROVIDERS: Visit Provider Physician Assistant
DX: G95.9 Disease of spinal cord, unspecified (principal)
CPT/HCPCS: 99024

== ENCOUNTER → 2024-04-26 10:41 | Outpatient (BNVA) | payer OTHER, SELFPAY | PROVIDERS: Visit Provider Physician Assistant | DX: G95.9 Disease of spinal cord, unspecified (principal) | CPT/HCPCS: 99212 ==

== ENCOUNTER 2024-06-06 13:22 | Outpatient (AMB) | payer OTHER, SELFPAY ==
--- NOTE | 2024-06-06 13:27 | A.SPINEOV_ITS ---
Intake Visit Reasons: 2nd post op Intake Note: Ms. Zayas is here today for her 2nd post-op. 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 She is doing great. Her dizziness is gone. Her numbness in the arms is better and there walking is more stable. Her wound is healed up beautifully. Her strength is almost back to normal. We discussed activity guidelines and expectations after cervical laminectomy for myelopathy. She has no restrictions. She can see us back on an as-needed basis. Sebas Phipps MD, PhD [facility] Coding Level of Care Code Global (04369) Diagnoses Cervical myelopathy G95.9
== END 2024-06-06 14:54 | disposition home or self-care (01) ==
PROVIDERS: Visit Provider Physician Assistant
DX: G95.9 Disease of spinal cord, unspecified (principal)
CPT/HCPCS: 99024

== ENCOUNTER → 2024-06-06 13:22 | Outpatient (BNVA) | payer OTHER, SELFPAY | PROVIDERS: Visit Provider Physician Assistant | DX: G95.9 Disease of spinal cord, unspecified (principal) | CPT/HCPCS: 99212 ==

== ENCOUNTER 2024-10-01 08:50 | Outpatient (AMB) | payer OTHER, SELFPAY ==
[2024-10-01 08:53] VITALS: BP 108/70; PULSE 81; O2SAT 98; BMI 22.6
--- NOTE | 2024-10-01 08:53 | A.OFFVIS_ITS ---
Vital Signs 10/01/24 08:53 Height 5 ft 2.5 in Weight 125 lb 10.616 oz BMI 22.6 BP 108/70 Blood Pressure Location Rt brachial Position Sitting Pulse 81 Pulse Source Pulse Oximeter Pulse Oximetry (%) 98 Oxygen Delivery Method Room Air Intake Visit Reasons: COPD Allergies cephalexin [Keflex] Allergy (Severe, Verified 10/01/24 08:58) convulsions penicillin V Allergy (Severe, Verified 10/01/24 08:58) Convulsion HPI Comments Details: Patient is a 69 y/o woman with a history of COPD, pulmonary nodules and nontuberculous mycobacteria infection. She is status post resection in now with no evidence of any recurrence. She still has some chest discomfort at the site of the surgery on her right side. She did have a pneumothorax that was therefore a significant amount of time after surgery. Now has resolved. She is feeling better. She is no longer requiring the neb treatments. Will try to place her back in inhalers. However, she does not do well with inhaled cortical steroids at a powdered. She gets irritation of the throat and other side effects. Therefore, will have to place her HFA formulation. She has done well Symbicort in the past. She has failed Advair and felt Breo as well as other powder inhalers. Her CT scan of the chest was done we did reviewed in the office. It appears that she does have the severe emphysema primarily upper lung zone in mid lung predominant but still preserving her bases specially on the right. No new nodules appreciated. Her surgical area appears to be completely healed. She sti ll having some pain at that site however. 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 She continues her respiratory therapy. She is maintaining her weight 114. She continues to have a good appetite. This point the patient is being evaluated for parathyroid issues. From pulmonary standpoint I do believe she can handle general anesthesia but the patient does have high risk for perioperative pulmonary complications which include which hypoxia, atelectasis, prolonged mechanical ventilation and pneumonia. Therefore, based on the fact that she is still recovering from her other surgeries my 1st recommendation is for her to avoid surgery if possible. If however surgery is a necessity, then, she is medically optimized from a respiratory status. 12/06/2022 the patient is here for a pulmonary follow-up visit. The patient overall is doing well. She continues use respiratory therapy with good effect. Her weight continues to be stable. Her appetite is good. The patient did have a recent CT scan of the chest that we personally reviewed the report. It appears that she has stable pulmonary nodules. She does have a calcified nodule which consistent with granuloma. No evidence of any active mycobacterial disease which is reassuring. No changes at this time. Will plan to follow-up with her CT scan in a year's time and also follow-up in a year with pulmonary function studies. If the patient has any issues prior to this she is to call the office for an earlier evaluation. 12/05/2023 the patient is here for a pulmonary follow-up visit. The patient has been concerned because she is developing worsening cough in addition to some night sweats. She states that initially when she became sick with the smoldering mycobacterial disease she started with these symptoms. She did recently have a CT scan done at [facility]. However, I do not have it available. I did request from [facility] but has yet to arrive via effects. I will give her a call once I have it available. In the meantime we did review her pulmonary function studies. It appears that the patient does have severe COPD. She has severe hyperinflation and air trapping due to the COPD. And also diffusion impairment. We talked about the importance of breathing exercises and helping her with her air trapping. Therefore will go ahead and start her on pulmonary rehab that I believe will have excellent benefits with the patient. In the meantime we also talked about other alternatives including more invasive or semi-invasive procedures such as the [address] valves for help with her significant air trapping as a lung volume reduction intervention. The patient will look into it and will read up in to the benefits and risks of this procedure. She is concerned because when she did have surgery in the past for her pulmonary nodule she did have a prolonged air leak and pneumothorax. The patient will continue with current respiratory therapy. Once I have the CAT scan available I will call her. She has not able to give us any sputum for culture. So if we see any significant changes in the CT scan or any suspicious changes will go ahead and talk to the patient about having a bronchoscopy in order to get some deep cultures. 03/05/2024 the patient is here for a pulmonary follow-up visit. The patient has been doing very well. She continues to participate in pulmonary rehabilitation. This has been very affecting beneficial for her. She continues with respiratory therapy which includes Symbicort and Spiriva. She does not use her albuterol regularly. Typically less than 2 times a week. The patient is having neurological symptoms due to severe spinal stenosis in the cervical spine. She did see a digital campaign specialist. It looks like she is going to need surgery. At this point the patient is medically optimized from a respiratory status in January 24 proceed with surgery. She does have moderate risk for perioperative pulmonary complications which include; bronchospasms, atelectasis, hypoxia, pneumonia, prolonged mechanical ventilation. Although these are less likely since she is doing well. At this point I would have her proceed with surgery and anesthesia. She needs to get this taken care of based on the severity. The patient will continue with pulmonary rehabilitation afterwards whenever safe from a surgical standpoint. 10/01/2024 the patient is here for a pulmonary follow-up visit. Overall she is doing very well from respiratory status. She continues using inhalers as prescribed. She has not had any flare-ups and has not required any prednisone. The patient did have her cervical surgery in the summer of 2023 she did very well. Unfortunately right after that she developed a perforated appendicitis requiring surgery as well. She also recovered from that. The patient denies any worsening cough chest congestion or weight loss. The patient has a history of mycobacterial disease but it was treated after surgery. She is scheduled to have a repeat CT scan to the lung cancer screening program in November of 2024. She will follow-up in a year's time. If she develops any symptoms or any concerning issues prior to that she will call for an earlier assessment. [facility] Medical History (Updated 03/21/24 @ 12:04 by Lizz Church RN) Vertigo History of MRSA infection SOB (shortness of breath) On beta salena at home Hyperparathyroidism, primary Anxiety GERD (gastroesophageal reflux disease) Hyperlipidemia Hypertension Osteoporosis (~2015) Personal history of nicotine dependence Pulmonary nodules Mycobacterial disease COPD (chronic obstructive pulmonary disease) Surgical History (Updated 03/21/24 @ 11:56 by Lizz Church RN) Hx of parathyroidectomy H/O colonoscopy History of esophagogastroduodenoscopy (EGD) Hx of exploratory laparotomy Hx of tubal ligation History of lumbar laminectomy History of cholecystectomy History of lung surgery Social History Are you a primary before and after school daycare worker to a significant other at home: No Do you presently have visiting nurse or other home services: No Patient Tobacco Use Status: Former Tobacco user Tobacco use type: Cigarette Years Smoked: 20 years Review of Systems Const Denies night sweats and Reports weight gain ENT Denies change in voice, Denies lip swelling, Denies mouth pain, Reports nasal congestion, Reports nasal discharge and Denies tongue swelling Card Denies chest pain and Reports dyspnea on exertion Resp Denies chest congestion, Reports cough and Reports dyspnea on exertion GI Denies abdominal pain Musc Denies no additional complaints Neuro Denies Neuro-related abnormal movements Psych Denies no additional complaints Raad/Lymph Denies easy bleeding and Denies lymphadenopathy Aller/Immun Denies lip swelling and Denies tongue swelling Physical Exam Vital Signs: Last Vital Signs Pulse 81 10/01/24 08:53 BP 108/70 10/01/24 08:53 Pulse Ox 98 10/01/24 08:53 Oxygen Delivery Method Room Air 10/01/24 08:53 BMI result Body Mass Index 22.6 Const General: alert Neck Neck: Yes normal visual inspection, Yes full ROM and Yes no lymphadenopathy Chest Chest palpation & inspection: normal inspection of the chest Resp Effort & Inspection: normal respiratory effort Auscultation: no wheezes and diminished lung sounds Cardio Rate: regular rate Rhythm: regular rhythm Heart sounds: S1 normal heart sound present and S2 normal heart sound present GI Palpation (GI): Soft to palpation and nontender Auscultation: normal bowel sounds Skin General skin exam: rashes and/or lesions noted Assessment & Plan Assessment & Plan (1) COPD (chronic obstructive pulmonary disease): Code(s): J44.9 - Chronic obstructive pulmonary disease, unspecified Category: Medical Qualifiers: COPD type: COPD with acute lower respiratory infection Qualified Code(s): J44.0 - Chronic obstructive pulmonary disease with (acute) lower respiratory infection (2) Mycobacterial disease: Comment: status post treatment. no evidence of any residual disease Code(s): A31.9 - Mycobacterial infection, unspecified Category: Medical Plan Continue Symbicort continue Spiriva short-acting beta agonist as needed LDCT F/U 10-12 months Coding Level of Care Code Est Pt Level 4 (86009) Diagnoses Chronic obstructive pulmonary disease with acute lower respiratory infection J44.0 COPD type: COPD with acute lower respiratory infection Mycobacterial disease A31.9 Time Spent (min) 16
== END 2024-10-01 09:10 | disposition home or self-care (01) ==
PROVIDERS: PCP Internal Medicine; Visit Provider Hospitalist
DX: J44.0 Chronic obstructive pulmonary disease with (acute) lower respiratory infection (principal); A31.9 Mycobacterial infection, unspecified
CPT/HCPCS: 99214

== ENCOUNTER → 2024-10-01 08:50 | Outpatient (BNVA) | payer OTHER, SELFPAY | PROVIDERS: PCP Internal Medicine; Visit Provider Hospitalist | DX: J44.0 Chronic obstructive pulmonary disease with (acute) lower respiratory infection (principal); A31.9 Mycobacterial infection, unspecified | CPT/HCPCS: 99212 ==

== ENCOUNTER 2024-10-16 08:38 | Outpatient (AMB) | payer OTHER, SELFPAY ==
[2024-10-16 08:41] VITALS: BP 118/64; PULSE 99; O2SAT 97; BMI 23.0
--- NOTE | 2024-10-16 08:41 | MHC.OFFVIS ---
Vital Signs 10/16/24 08:41 Height 5 ft 2.5 in Weight 128 lb BMI 23.0 BP 118/64 Blood Pressure Location Rt brachial Position Sitting Pulse 99 Pulse Source Pulse Oximeter Pulse Oximetry (%) 97 Oxygen Delivery Method Room Air Intake Visit Reasons: dry cough Child Center Assistant Required: No Ticket Dispenser Changer: Ticket Dispenser Changer offered & declined Accompanied by: Self / Same As Patient Allergies cephalexin [Keflex] Allergy (Severe, Verified 10/16/24 08:47) convulsions penicillin V Allergy (Severe, Verified 10/16/24 08:47) Convulsion Medication List - Last Reconciled 10/16/24 by Danyelle Sifuentes LPN albuterol sulfate 2.5 mg (3 mL) inhalation Q4-6H PRN albuterol sulfate 90 mcg/actuation 2 puffs inhalation Q6H PRN ascorbic acid (vitamin C) (Vitamin C) 250 mg PO DAILY cholecalciferol (vitamin D3) (Vitamin D3) 25 mcg PO DAILY fluticasone propionate 50 mcg/actuation (Flonase Allergy Relief) 2 sprays intranasal DAILY 90 days lisinopril 15 mg PO BEDTIME lorazepam 0.5 mg PO DAILY PRN lovastatin 40 mg PO BEDTIME meclizine 6.25 mg PO TID metoprolol succinate ER 25 mg PO DAILY multivitamin 1 tab PO DAILY nebulizers As directed omeprazole 20 mg PO DAILY oxycodone 5 mg PO Q6H PRN sulfamethoxazole-trimethoprim 800-160 mg (Bactrim DS) 1 tab PO BID 2 days Symbicort 160-4.5 mcg/actuation (budesonide-formoterol) 2 puffs PO BID 90 days NS tiotropium bromide 2.5 mcg/actuation (Spiriva Respimat) 2 puffs inhalation DAILY 90 days HPI HPI dry cough: Details: Danni is a pleasant 69 year old female, former smoker, with underlying COPD, pulmonary nodules, and h/o mycobacterial disease s/p RLL 2019 completed 3 months of abx no reccurence since. At baseline she has been well controlled on Symbicort, Spiriva, albuterol MDI/neb and Flonase. She is under the care of Dr. Centeno and presents today for an acute visit. She reports 1 week h/o dry persistent cough with associated dyspnea and chest tightness. She denies wheezing. She endorses intermittent sinus congestion, denies chest congestion. She denies fever, chills or sick contacts. FOR[facility] Medical History (Updated 03/21/24 @ 12:04 by Lizz Church RN) Vertigo History of MRSA infection SOB (shortness of breath) On beta salena at home Hyperparathyroidism, primary Anxiety GERD (gastroesophageal reflux disease) Hyperlipidemia Hypertension Osteoporosis (~2016) Personal history of nicotine dependence Pulmonary nodules Mycobacterial disease COPD (chronic obstructive pulmonary disease) Surgical History (Updated 03/21/24 @ 11:56 by Lizz Church RN) Hx of parathyroidectomy H/O colonoscopy History of esophagogastroduodenoscopy (EGD) Hx of exploratory laparotomy Hx of tubal ligation History of lumbar laminectomy History of cholecystectomy History of lung surgery Social History Are you a primary manager medicare marketing to a significant other at home: No Do you presently have visiting nurse or other home services: No Patient Tobacco Use Status: Former Tobacco user Tobacco use type: Cigarette Years Smoked: 20 years Review of Systems Const Denies chills, Denies excessive sweating, Denies fever(s), Denies headache(s) and Denies night sweats Eyes Denies dry eyes, Denies irritation and Denies itchy eyes ENT Reports Normal hearing present, Denies headache(s) and Denies sore throat Card Denies chest pain, Denies chest pain at rest, Denies chest pain with activity, Denies claudication, Denies leg edema, Denies orthopnea and Denies paroxysmal nocturnal dyspnea Resp Denies chest congestion, Denies excessive phlegm production, Denies pain on inspiration, Denies pain with cough, Denies stridor and Denies wheezing Musc Denies myalgias Neuro Reports Normal hearing present and Denies headache(s) Endo Denies excessive sweating Raad/Lymph Denies lymphadenopathy Aller/Immun Denies itchy eyes, Denies seasonal rhinorrhea and Denies wheezing Physical Exam Vital Signs: Last Vital Signs Pulse 99 10/16/24 08:41 BP 118/64 10/16/24 08:41 Pulse Ox 97 10/16/24 08:41 Oxygen Delivery Method Room Air 10/16/24 08:41 BMI result Body Mass Index 23.0 Const General: cooperative, healthy appearing, comfortable, no acute distress, well developed and alert Orientation/consciousness: patient oriented x3 Limitations: no limitations HEENT Head: Yes normal to inspection, Yes normocephalic and Yes atraumatic Ears: hearing grossly normal bilaterally and external ears normal Eyes General: appearance normal, both eyes and all related structures Eyelids: Yes eyelids normal Sclerae: sclerae normal EOM: EOMs intact bilaterally Neck Neck: Yes normal visual inspection and Yes no lymphadenopathy Lymphatic: no lymphadenopathy noted Chest Chest palpation & inspection: normal inspection of the chest Resp Other: postexhalation cough, improved after DuoNeb Effort & Inspection: normal respiratory effort, able to speak in complete sentences, no audible wheezes, Actively coughing Quality: dry, no stridor, not tachypneic, no tripod positioning and no use of accessory muscles Auscultation: diminished lung sounds Cardio Jugular venous distension: no JVD Rate: regular rate Rhythm: regular rhythm Skin Other: warm, dry General skin exam: no rashes or lesions noted Neuro General: patient oriented x3 Cranial nerves: Yes Normal hearing present Cognition (Neuro): normal cognition Gait exam (Neuro): Normal gait present Extrem General: Yes normal to inspection, Yes capillary refill normal, Yes no clubbing, cyanosis or edema and Yes no pedal edema Psych Appearance: grossly normal and well kempt Speech and movement: Normal speech and movement present and Clear speech present Affect: normal affect Attitude: cooperative Thought process: Normal thought process present Thought content: Normal thought content present Insight: Good insight present (Psych) Judgement: Good judgement present (Psych) Assessment & Plan Assessment & Plan (1) COPD (chronic obstructive pulmonary disease): Code(s): J44.9 - Chronic obstructive pulmonary disease, unspecified Category: Medical Qualifiers: COPD type: COPD with acute lower respiratory infection Qualified Code(s): J44.0 - Chronic obstructive pulmonary disease with (acute) lower respiratory infection (2) Mycobacterial disease: Comment: status post treatment. no evidence of any residual disease Code(s): A31.9 - Mycobacterial infection, unspecified Category: Medical Plan Will treat with a zpak and encouraged use of albuterol nebulizer. Will send refills. She is aware to call if symptoms do not improve or seek emergent care if symptoms worsen. All questions were answered and patient is in agreement of plan. Will follow up for regularly scheduled appointment with Dr. Centeno or sooner if needed. Medications: New azithromycin For 250 mg dose pack: take 500 mg today (day 1), then 250 mg for 4 days (days 2-5) PO 6 tabs 0RF Refilled albuterol sulfate 2.5 mg (3 mL) inhalation Q4-6H PRN 180 mL 0RF shortness of breath or wheezing J44.0 - Chronic obstructive pulmonary disease with (acute) lower respiratory infection Coding Level of Care Code Est Pt Level 4 (03092) Complex EM visit Add On G2211 Diagnoses Chronic obstructive pulmonary disease with acute lower respiratory infection J44.0 COPD type: COPD with acute lower respiratory infection Mycobacterial disease A31.9
--- OUTSIDE RECORDS SUMMARY | 2024-10-16 08:55 | XMS_ITS | Clinical Summary ---
Author Organization [facility] [address] [place] [address] Address [address] [facility] [place] [address] Phone Care Team Providers Care Floor Inspector Name Role Phone Sosa Cueto MD Primary Care Provider [phone] Allergies Active Allergy Reactions Criticality Noted Date Comments Cephalexin Unknown Low 12/25/2008 Other Reaction(s): Affects muscles Ofloxacin Hallucinations,Rash 01/02/2019 Penicillins Unknown 01/02/2019 Medications Medication Sig Dispensed Refills Start Date End Date Status ascorbic acid (VITAMIN C) 500 mg chewable tablet Chew 1 (one) time each day. Active acetaminophen (TYLENOL) 325 mg tablet Take 2 tablets (650 mg total) by mouth. 02/15/2022 Active albuterol 2.5 mg /3 mL (0.083 %) nebulizer solution INHALE 2.5MG 3 ML) VIA NEBULIZER EVERY 4 TO 6 HOURS NEEDED FOR SHORTNESS OF BREATH OR WHEEZING 08/21/2023 Active Symbicort 160-4.5 mcg/actuation inhaler Inhale 2 puffs by mouth 2 (two) times a day. Active fluticasone propionate (FLONASE) 50 mcg/actuation nasal spray 2 sprays 1 (one) time each day. 03/05/2024 Active LORazepam (ATIVAN) 0.5 mg tablet Take 1 tablet (0.5 mg total) by mouth 1 (one) time each day if needed. 10/04/2018 Active lovastatin (MEVACOR) 40 mg tablet Take 1 tablet (40 mg total) by mouth. 05/31/2024 Active metoprolol succinate (TOPROL-XL) 25 mg 24 hr tablet Take 1 tablet (25 mg total) by mouth 1 (one) time each day. Active omeprazole (PriLOSEC) [address] capsule Take 1 capsule (20 mg total) by mouth 2 (two) times a day. 07/18/2024 Active Spiriva Respimat 2.5 mcg/actuation inhalation spray Inhale 2 puffs by mouth 1 (one) time each day. Active triamcinolone (KENALOG) 0.1 % cream Apply 1 each topically. 05/24/2021 Active lisinopriL (PRINIVIL,ZESTRI L) 10 mg tablet Take 1.5 tablets (15 mg total) by mouth 1 (one) time each day. Active albuterol HFA (PROAIR HFA ; PROVENTIL HFA ; VENTOLIN HFA) 90 mcg/actuation inhaler Inhale 2 puffs by mouth every 6 (six) hours if needed for wheezing. Active calcium carbonate/vitami n D3 (CALCIUM + D ORAL) Take 1 tablet by mouth 1 (one) time each day. Active meclizine (ANTIVERT) 12.5 mg tablet TAKE ONE TABLET BY MOUTH THREE TIMES A DAY 90 tablet 5 10/09/2024 Active meclizine (ANTIVERT) 12.5 mg tablet Take 1 tablet (12.5 mg total) by mouth. 04/09/2024 10/09/2024 Discontinued Active Problems Problem Noted Date Diagnosed Date Postcoital bleeding 09/11/2024 Assessment & Plan (09/11/2024 8:36 AM EST): I counseled Danni that there is no evidence of cause in the vagina or on the cervix. I recommended pelvic US which will also evaluate the cramping. Pelvic cramping 09/11/2024 Assessment & Plan (09/11/2024 8:37 AM EST): Will order pelvic US. Did recommend she work on rescheduling colonoscopy. Tuberculosis 09/03/2024 Cervical radiculopathy 12/25/2023 Chronic neck pain 12/25/2023 Abnormal MRI, cervical spine 12/25/2023 Mild left ventricular hypertrophy 12/16/2020 Overview (09/03/2024): EF 50-55%. Following ith Dr. Willoughby Hypertension 12/18/2019 Hyperparathyroidism 01/21/2019 Overview (09/03/2024): parathyroidectomy Mycobacterial disease 01/21/2019 Lung nodule 11/07/2018 Overview (09/03/2024): New lung mass rul 10/13, 1.6x1.2 cm - resected, not lung cancer Pelvic mass in female 07/27/2018 Overview (09/03/2024): Patient had a CT scan of the abdomen and pelvis on 06/27/2018, completed because of weight loss. This showed a solid appearing left adnexa. Follow-up ultrasound was completed but unfortunately neither ovary was able to be visualized. Patient underwent a diagnostic laparoscopy and peritoneal washing by Dr. Skyler Flores on 08/20/2018. Per operative note all intra-abdominal structured appeared normal there were no adhesions. The gallbladder was absent. There was no evidence of mass within the pelvis, uterus, fallopian tubes and ovaries appeared normal. Pathology report dated 08/21/2018 states peritoneal washing were negative for malignant cells. Hypercalcemia 02/23/2018 COPD (chronic obstructive pulmonary disease) Osteoporosis 11/24/2014 Overview (09/03/2024): 08/08 T score spine -0.4 hip -2.7 08/10 T score spine -0.2 hip -2.9 07/14 T score spine -0.9 hip -3.1 Colon polyp 06/18/2012 Overview (09/03/2024): Tubular adenoma times 2 04/07, 03/12 Vitamin D deficiency 11/04/2011 Psoriasis 09/14/2009 MRSA (methicillin resistant Staphylococcus aureus) infection 09/14/2009 Overview (09/03/2024): Hand cellulitis and lymphangitis, MRSA positive Eczema 07/24/2009 Hypercholesteremia 12/26/2007 GERD (gastroesophageal reflux disease) 8 Anxiety 10/26/2007 Encounters Date Type Department Care Team Description 09/12/2024 5:27 PM EST - 09/12/2024 11:59 PM EST Hospital Encounter Radiology [address] [phone] Pelvic cramping; Postcoital bleeding Discharge Disposition: Home or Self Care 09/12/2024 7:54 AM EST - 09/12/2024 11:59 PM EST Hospital Encounter Radiology [address] [phone] Encounter for screening mammogram for breast cancer Discharge Disposition: Home or Self Care 09/06/2024 2:15 PM EST Office Visit Obstetrics and Gynecology [address] [phone] Carmen Vargas MD Postcoital bleeding (Primary Dx); Pelvic cramping 08/19/2024 Telephone Obstetrics and [address] [phone] Carmen Vargas MD Pelvic Pain 08/07/2024 1:30 PM EST Office Visit Adult [address] [phone] Katt Caceres PA Sensation of pressure in bladder area (Primary Dx); Vaginal discharge 08/07/2024 Telephone Adult [address] [phone] Anuja West RN 08/06/2024 Nurse Triage Adult [address] [phone] Sosa Cueto MD Urinary Frequency from Last 3 Months Immunizations Name Administration Dates Next Due Influenza Quadravalent, MDCK , 0.5ml, preservative free (Flucelvax) 6mo and older 07/02/2021,06/10/2020,07/18/2019,07/25 Influenza Quadravalent, MDCK , 0.5ml, with preservative (Flucelvax) 6mo and older 07/09/2017 Influenza trivalent, 0.5mL ( Fluad) 65yo and older 07/18/2024 Influenza trivalent, 0.5mL ( Fluzone High-dose) 65yo and older 05/31/2022 Influenza trivalent, with pr eservative (Fluzone; Afluria) 6mo and older 08/08/2016,07/17/2015,06/30/2014,10/09,06/19/2012 Pneumococcal conjugate 13 va lent (Prevnar 13, PCV13) 2mo and older 10/26/2021 Pneumococcal polysaccharide 23 valent (Pneumovax 23) 2yo and older 08/08/2016 Td Tetanus diptheria (Tdvax) 7yo and older 07/18/2018 Tdap Tetanus diptheria acell ular pertussis (Boostrix; Adacel) 7yo and older 12/26/2007 Surgical History Surgery Date Site/Laterality Comments LUMBAR LAMINECTOMY PROCEDURE: HISTORICAL LUMB LAMINECTOMY OTHER SURGICAL HISTORY - 1979 PROCEDURE: IN WEDGE RESCJ/BISCTJ OVARY UNI/BI; COMMENT: ovarian cystectomy OTHER SURGICAL HISTORY 12/2015 PROCEDURE: MAMMOGRAM CHOLECYSTECTOMY PROCEDURE: HISTORICAL CHOLECYSTECTOMY ESOPHAGOGASTRODUODENOSCOPY 04/24/20 12 PROCEDURE: IN ESOPHAGOGASTRODUODENOSCOPY TRANSORAL DIAGNOSTIC; COMMENT: normal COLONOSCOPY 11/06/19 10 PROCEDURE: HISTORICAL COLONOSCOPY; COMMENT: adenomas; repeat in three years. COLONOSCOPY W/ POLYPECTOMY 04/14/20 14 PROCEDURE: IN COLSC FLX W/RMVL OF TUMOR POLYP LESION SNARE TQ; COMMENT: adenomas; repeat in 3 yrs COLONOSCOPY 03/13/20 18 PROCEDURE: IN COLONOSCOPY STOMA W/RMVL DEBBIE POLYP/OTH LES SNARE; COMMENT: Diminutive adenomas and hyperplastic polyps; hemorrhoids; repeat in 5 yrs under propofol LAPAROSCOPY DIAGNOSTIC / BIO PSY / ASPIRATION / LYSIS 08/20/20 18 PROCEDURE: PELVIS LAPAROSCOPY, DIAGNOSTIC; COMMENT: Performed by Dr. Flores APPENDECTOMY 04/2024 PROCEDURE: IN APPENDECTOMY Medical History Medical History Date Comments Family history of colon cancer 10/26/2007 D X:Family history of colon cancer Anxiety 10/26/2007 DX:Anxiety Hypercholesteremia 12/26/2007 DX:Hyperchole steremia Eczema 07/24/2009 DX:Eczema Psoriasis 09/14/2009 DX:Psoriasis MRSA (methicillin resistant Staphylococcus aureus) infection 09/14/2009 DX:MRSA (methicillin resistant Staphylococcus aureus) infection Esophageal reflux DX:Esophageal reflux Colon polyp 06/18/2012 DX:Colon polyp Osteoporosis 11/24/2014 DX:Osteoporosis; COMMENT: 08/08 T score spine -0.4 hip -2.7 Emphysema lung ([facility]/HCC) 10/08/2015 DX:Emph ysema lung (HCC) Lung nodule 11/07/2018 DX:Lung nodule; COMMENT: New lung mass rll 10/13 Hyperparathyroidism (CMS/HCC) 01/21/2019 DX :Hyperparathyroidism (HCC) Mycobacterial disease 01/21/2019 DX:Mycobac terial disease Protein calorie malnutrition (CMS/HCC) 01/21/2019 DX:Protein calorie malnutrition (HCC) Hypertension 12/18/2019 DX:Hypertension Family History Medical History Relation Name Comments Breast cancer Aunt pat maternal Heart attack Father age 80 , 2006, diabetes, CHF, COPD Colon cancer Mother 07/01, resection/colostomy/radiation Breast cancer Other mat aunt Diabetes Paternal Grandmother Other: renal cell cancer Sister d Diabetes Uncle Relation Name Status Comments Aunt pat Father Mother Other mat aunt Paternal Grandmother Sister Uncle Social History Tobacco Use Types Packs/Day Years Used Date Smoking Tobacco: Former Cigarettes 0.5 33.6 0 1981 - 04/28/2015 Smokeless Tobacco: Never Tobacco Cessation:Counseling Given: Not Answered Alcohol Use Standard Drinks/Week Comments No 0 (1 standard drink = 0.6 oz pur e alcohol) Housing Instability Answer Date Recorde d Are you worried that in the next 2 months you may not have stable housing? No 09/05/2024 Food Access & Nutrition Answer Date Rec orded Do you have access to a vari ety of food including fruits and vegetables? Yes 09/05/2024 Health Literacy Answer Date Recorded How often do you need to hav e someone help you when you read instructions, pamphlets, or other written material from your doctor or pharmacy? Never 09/05/2024 Caregiver: How often do you need to have someone help you when you read instructions, pamphlets, or other written material from your doctor or pharmacy? Not on file 09/05/2024 Financial Risk Answer Date Recorded How hard is it for you to pa y for the very basics like food, housing, medical care, and air conditioning / heating? Not very hard 09/05/2024 Transportation Answer Date Recorded Has the lack of transportati on kept you from meetings, work, or from getting things needed for daily living? No Has the lack of transportati on kept you from medical appointments or from getting medications? No 09/05/2024 Social Isolation Answer Date Recorded How often do you feel lonely or isolated from th ose around you? Never 09/05/2024 Food Risk Answer Date Recorded Within the past 12 months we worried whether our food would run out before we got money to buy more. Never true 09/05/2024 Within the past 12 months th e food we bought just didn't last and we didn't have money to get more. Never true 09/05/2024 Dependent Care Answer Date Recorded Do you need help finding or paying for care for your loved ones. For example, early childhood lead teacher or elderly care for an older adult? No 09/05/2024 Education Answer Date Recorded Do you think completing more education or training, like finishing a GED, going to college, or learning a trade, would be helpful for you? No 09/05/2024 Employment and Income Answer Date Recor ded During the last four weeks, have you been actively looking for work? No 09/05/2024 Living Situation Answer Date Recorded What is your living situation? 1 11/06/2023 Sex and Gender Information Value Date Recorded Sex Assigned at Not on file Gender Identity Not on file Sexual Orientation Not on file Job Start Date Occupation Industry Not on file Not on file Not on file Obstetrics History Para Term AB IAB SAB Ectopic Multiple Livin g Live Births 5 3 3 3 3 Date Outcome GA Total Labor Labor/2nd/3rd Weight Sex Type Anes PTL Renata A1 A5 Name Clin Term Term Term Last Filed Vital Signs Vital Sign Reading Time Taken Comments Blood Pressure 120/70 09/06/2024 2:27 PM EST Pulse 88 09/06/2024 2:27 PM EST Temperature 35.9 ??C (96.6 ??F) 08/07/2024 1:42 PM ES T Respiratory Rate 16 09/06/2024 2:27 PM EST Oxygen Saturation - - Inhaled Oxygen Concentration - - Weight 57.9 kg (127 lb 9.6 oz) 09/06/2024 2:27 P M EST Height 158.8 cm (5' 2.5 ) 09/06/2024 2:27 PM EST Body Mass Index 22.97 09/06/2024 2:27 PM EST Plan of Treatment Upcoming Encounters Date Type Department Care Team (Late st Contact Info) Description 11/29/2024 11:15 AM EST Office Visit Adult Medicine [facility] [address] [place] [phone] Sosa Cueto MD [address] [place] [address] Health Maintenance Due Date Last Done Comments Cervical Cancer Screening: HPV 1977 Zoster Vaccines (1 of 2) 2006 RSV Immunization Patients 60+ Years Old (1 - Risk 60-74 years 1-dose series) 2016 Medicare Annual Wellness Visit 09/03/2022 Pneumococcal Vaccine: 65+ Years (3 of 3 - PPSV23 or PCV20) 10/26/2022 10/26/2021, 08/08/2016 Colorectal Cancer Screening: Colonoscopy 03/13/2023 03/13/2018 COVID-19 Vaccine ( - season) 2024 01/08/2021, 12/11/2020 Falls Risk Assessment 11/28/2024 11/29/2023 Hypertension/CHF/CAD Annual BMP Blood Test 03/18/2025 03/18/2024 Depression Screening 09/05/2025 09/05/2024, 11/29/2023, 10/07/2020 Social Influencers of Health Screening 09/05/2025 09/05/2024 Breast Cancer Screening 09/12/2026 09/12/20, 09/06/2023, 08/30/2022, Additional history exists DTaP,Tdap,and Td Vaccines (3 - Td or Tdap) 07/18/2028 07/18/2018, 12/26/2007 Cholesterol Screening (Lipid Panel) 07/18/2029 07/18/2024 Osteoporosis Screening (Bone Density Screening) 07/27/2032 07/27/2022, 07/21/2020 Hepatitis C Screening Addressed 06/17/2013 Overri dden with the intention of not completing the topic Influenza Vaccine Completed 07/18/2024, , 07/02/2021, Additional history exists HIB Vaccines Aged Out No longer eligi ble based on patient's age to complete this topic HPV Vaccines Aged Out No longer eligi ble based on patient's age to complete this topic Hepatitis A Vaccines Aged Out No long er eligible based on patient's age to complete this topic Hepatitis B Vaccines Aged Out No long er eligible based on patient's age to complete this topic IPV Vaccines Aged Out No longer eligi ble based on patient's age to complete this topic MMR Vaccines Aged Out No longer eligi ble based on patient's age to complete this topic Meningococcal ACWY Vaccine Aged Out N o longer eligible based on patient's age to complete this topic RSV Immunization Patients Under 20 months Aged Out No longer eligible based on patient's age to complete this topic Varicella Vaccines Aged Out No longer eligible based on patient's age to complete this topic Procedures Procedure Name Priority Date/Time Associated Diagnosis Comments US PELVIS NON OB COMPLETE W TRANSVAGINAL Routine 09/12/2024 5:46 PM EST Pelvic cramping Postcoital bleeding MG MAMMO DIGITAL SCREENING W JOE BILAT Routine 09/12/2024 8:16 AM EST Encounter for screening mammogram for breast cancer POC URINE AUTO W/O MICRO Routine 08/07/2024 2:01 PM EST Sensation of pressure in bladder area DXA BONE DENSITY STUDY 1+ SITS AXIAL SKEL Routine 07/27/2022 2:13 PM EDT Hyperparathyroidism , unspecified (CMS/HCC) from Last 3 Months or Most Recently Relevant to Health Maintenance Results * US Pelvis Non OB Complete w Transvaginal (09/12/2024 5:46 PM EST) Anatomical Region Laterality Modality Body, Pelvis Ultrasound 09/13/2024 9:11 AM EST Impressions 09/13/2024 9:14 AM EST Impression: Nonvisualization of the ovaries. ??Prominent left adnexal veins. ??Otherwise normal pelvic ultrasound. -------- FINAL REPORT -------- Dictated By: Danny Leyva Dictated Date: 09/13/2024 09:11 ET Assigned Physician: Danny Leyva Reviewed and Electronically Signed By: Danny Leyva Signed Date: 09/13/2024 09:14 ET Workstation ID: [id number] Transcribed By: Self Edit Transcribed Date: 09/13/2024 09:11 ET Narrative 09/13/2024 9:14 AM EST History: Postcoital bleeding. ??Cramping. Pelvic ultrasound: The pelvis was scanned transabdominally for maximum [id number]-shit, and then transvaginally for optimum delineation of the uterus and attempted visualization of the ovaries. The uterus is normal in size, configuration and echogenicity. It measures 6.7 x 2.6 x 4.4 cm. There is no appreciable myometrial or endometrial abnormality. The endometrial thickness is 2 mm maximum. The ovaries could not be visualized either transabdominally or transvaginally. ??No abnormal adnexal masses or fluid collections are demonstrated. ??The veins in the left adnexa are somewhat prominent, a finding which can sometimes be seen with pelvic congestion syndrome. Procedure Note Danny Leyva MD - 09/13/2024 History: Postcoital bleeding. Cramping. Pelvic ultrasound: The pelvis was scanned transabdominally for [id number], and then transvaginally for optimum delineation of theuterus and attempted visualization of the ovaries. The uterus is normal insize, configuration and echogenicity. It measures 6.7 x 2.6 x 4.4 cm.There is no appreciable myometrial or endometrial abnormality. Theendometrial thickness is 2 mm maximum. The ovaries could not be visualized either transabdominally ortransvaginally. No abnormal adnexal masses or fluid collections aredemonstrated. The veins in the left adnexa are somewhat prominent, afinding which can sometimes be seen with pelvic congestion syndrome. IMPRESSION: Impression: Nonvisualization of the ovaries. Prominent left adnexalveins. Otherwise normal pelvic ultrasound. -------- FINAL REPORT -------- Dictated By: Danny Leyva Dictated Date: 09/13/2024 09:11 ET Assigned Physician: Danny Leyva Reviewed and Electronically Signed By: Danny Leyva Signed Date: 09/13/2024 09:14 ET Workstation ID: [id number] Transcribed By: Self Edit Transcribed Date: 09/13/2024 09:11 ET Carmen Vargas MD IMG US PROCEDURES * MG Mammo Digital Screening w Joe bilat (09/12/2024 8:16 AM EST) Anatomical Region Laterality Modality Breast Bilateral Mammography 09/12/2024 12:1 3 PM EST Impressions 09/12/2024 12:18 PM EST BILATERAL BREASTS: Negative, no evidence of malignancy. Normal interval follow- up is recommended in 12 months. BREAST DENSITY: B - There are scattered areas of fibroglandular density. BI-RADS CATEGORY: 1 - NEGATIVE RECOMMENDATION: Screening bilateral mammogram is recommended in 1 year. Mammo Location: [facility], [address] [place] [address], [id number], . -------- FINAL REPORT -------- Dictated By: Reba Scott Dictated Date: 09/12/2024 12:13 ET Assigned Physician: Reba Scott Reviewed and Electronically Signed By: Reba Scott Signed Date: 09/12/2024 12:18 ET Workstation ID: [id number] Transcribed By: Self Edit Transcribed Date: 09/12/2024 12:13 ET Narrative 09/12/2024 12:18 PM EST STUDY: Bilateral screening mammography with tomosynthesis and CAD TECHNIQUE: Bilateral full-field digital screening mammography is obtained and read in conjunction with computer-aided detection. ??Tomosynthesis as well as 2-D C view imaging were obtained. ?? COMPARISON: Comparison made to multiple prior, most recent September 06, 2023, and most remote January 07, 2015. BILATERAL BREASTS: No significant masses, suspicious calcifications or other abnormalities are seen. Procedure Note Reba Scott MD - 09/12/2024 STUDY: Bilateral screening mammography with tomosynthesis and CAD TECHNIQUE: Bilateral full-field digital screening mammography is obtainedand read in conjunction with computer-aided detection. Tomosynthesis aswell as 2-D C view imaging were obtained. COMPARISON: Comparison made to multiple prior, most recent August, and most remote January 07, 2015. BILATERAL BREASTS: No significant masses, suspicious calcifications orother abnormalities are seen. IMPRESSION: BILATERAL BREASTS: Negative, no evidence of malignancy. Normal intervalfollow-up is recommended in 12 months. BREAST DENSITY: B - There are scattered areas of fibroglandular density. BI-RADS CATEGORY: 1 - NEGATIVE RECOMMENDATION: Screening bilateral mammogram is recommended in 1 year. Mammo Location: [facility], [address] [place] [address], [id number], . -------- FINAL REPORT -------- Dictated By: Reba Scott Dictated Date: 09/12/2024 12:13 ET Assigned Physician: Reba Scott Reviewed and Electronically Signed By: Reba Scott Signed Date: 09/12/2024 12:18 ET Workstation ID: [id number] Transcribed By: Self Edit Transcribed Date: 09/12/2024 12:13 ET Sosa Cueto MD IMG BI PROCEDURES * POC Urine Auto W/O Micro (08/07/2024 2:01 PM EST) Glucose UA POC Negative Negative, Trace mg/dL Bilirubin UA POC Negative Negative, Small Ketones UA POC Negative Negative, Trace Specific Iaeger UA POC 1.010 Blood UA POC Negative Negative, Large PH UA POC 5.0 Protein UA POC Negative Negative, >=300 mg/dL Urobilinogen UA POC 0.2 E.U./dL mg/dL Nitrite UA POC Negative Negative Leukocytes UA POC Negative Negative Urine Urine specimen obtained by clean catch procedure / Unknown 08/07/2024 2:01 PM EST Katt PEDRAZA POINT OF CARE TEST E NTER/EDIT ORDERABLES * DXA BONE DENSITY STUDY 1+ SITS AXIAL SKEL (07/27/2022 2:13 PM EDT) Anatomical Region Laterality Modality Bone Densitometr y 03/16/2022 10:0 2 AM EDT Narrative 07/27/2022 2:25 PM EDT BONE DENSITY (DEXA) ? Lumbar Spine T-score is -0.7. ?? (SD relative to 20-29 y/o adult) Z-score is 1.1. ??(SD relative to age matched peers) This is considered normal by WHO criteria. Left Hip T-score is -3.0. Z-score is -1.5. This is considered osteoporosis by WHO criteria. Left Forearm T score is -1.4. Z score is 0.3. ?? This is considered to be osteopenia. IMPRESSION: This patient is considered to have osteoporosis by WHO criteria. [facility] Department of Internal Medicine recommends using National Osteoporosis Foundation (NOF) guidelines in treatment decisions related to osteoporosis. NOF guidelines suggest considering treatment for postmenopausal women and men aged 50 or older presenting with the following: History of hip or vertebral fracture. T-score = -2.5 (DXA) at the femoral neck, total hip, or spine, after appropriate evaluation to exclude secondary causes. Low bone mass (T-score between -1.0 and -2.5 at the femoral neck or spine) AND a 10-year probability of a hip fracture = 3% OR a 10-year probability of a major osteoporosis-related fracture = 20% based on the [place]-adapted WHO algorithm Please note that all treatment decisions require clinical judgment and consideration of individual patient factors, including patient preferences, co-morbidities, previous drug use, risk factors not captured in the FRAX model (e.g., frailty, falls, vitamin D deficiency, increased bone turnover, interval significant decline in bone density) and possible under- or over-estimation of fracture risk by FRAX. Optional alternative screening schedule based on abdi Sainz., [facility] October 13, 2011 for patients with osteopenia (based on hip BMD T-score) is as follows: * ??advanced osteopenia (T scores -2.00 to -2.49), BMD testing every year * ??moderate osteopenia (T scores -1.50 to -1.99), BMD testing every 5 years mild osteopenia or normal BMD (T scores -1.50 and higher), BMD testing every 15 years Procedure Note Leila Enriquez MD - 10/31/2023 BONE DENSITY (DEXA) Lumbar Spine T-score is -0.7. (SD relative to 20-29 y/o adult) Z-score is 1.1. (SD relative to age matched peers) This is considered normal by WHO criteria. Left Hip T-score is -3.0. Z-score is -1.5. This is considered osteoporosis by WHO criteria. Left Forearm T score is -1.4. Z score is 0.3. This is considered to be osteopenia. IMPRESSION: This patient is considered to have osteoporosis by WHO criteria. [facility] Department of Internal Medicine recommendsusing National Osteoporosis Foundation (NOF) guidelines in treatment decisions related toosteoporosis. NOF guidelines suggest considering treatment for postmenopausal women and menaged 50 or older presenting with the following: History of hip or vertebral fracture. T-score = -2.5 (DXA) at the femoral neck, total hip, or spine, afterappropriate evaluation to exclude secondary causes. Low bone mass (T-score between -1.0 and -2.5 at the femoral neck or spine)AND a 10-year probability of a hip fracture = 3% OR a 10-year probability of a majorosteoporosis-related fracture = 20% based on the [place]-adapted WHO algorithm Please note that all treatment decisions require clinical judgment andconsideration of individual patient factors, including patient preferences, co- morbidities,previous drug use, risk factors not captured in the FRAX model (e.g., frailty, falls, vitaminD deficiency, increased bone turnover, interval significant decline in bone density) andpossible under- or over-estimation of fracture risk by FRAX. Optional alternative screening schedule based on stephanie Sainz al., NEJMJanuary 2011 for patients with osteopenia (based on hip BMD T-score) is as follows: * advanced osteopenia (T scores -2.00 to -2.49), BMD testing every year * moderate osteopenia (T scores -1.50 to -1.99), BMD testing every 5years mild osteopenia or normal BMD (T scores -1.50 and higher), BMD testingevery 15 years Charlette PEDRAZA IMAndrez DXA PROCEDURES from Last 3 Months or Most Recently Relevant to Health Maintenance Care Teams Floor Inspector Relationship Specialty Start Date End Date Sosa Cueto MD [address] [place] [address] PCP - General 01/01/01
== END 2024-10-16 09:14 | disposition home or self-care (01) ==
PROVIDERS: PCP Internal Medicine; Visit Provider Nurse Practitioner Family
DX: J44.0 Chronic obstructive pulmonary disease with (acute) lower respiratory infection (principal); A31.9 Mycobacterial infection, unspecified
CPT/HCPCS: 99214; G2211

== ENCOUNTER → 2024-10-16 08:38 | Outpatient (BNVA) | payer OTHER, SELFPAY | PROVIDERS: PCP Internal Medicine; Visit Provider Nurse Practitioner Family | DX: J44.0 Chronic obstructive pulmonary disease with (acute) lower respiratory infection (principal); A31.9 Mycobacterial infection, unspecified; Z87.891 Personal history of nicotine dependence | CPT/HCPCS: 94640; 99212 ==

== ENCOUNTER 2025-04-22 08:26 | Outpatient (AMB) | payer OTHER, SELFPAY ==
--- OUTSIDE RECORDS SUMMARY | 2025-04-22 08:41 | XMS_ITS ---
Author Name [facility] Organization Unknown Care Team Organization Name Specialty Phone Email Start Date End Da te [facility] Sosa Cueto Primary [facility] 10/03/2022 4
--- OUTSIDE RECORDS SUMMARY | 2025-04-22 08:41 | XMS_ITS | Clinical Summary ---
Author Organization [facility] [address] [place] [address] Address [address] [facility] [place] [address] Phone Care Team Providers Care Pharmacy Scheduler Name Role Phone Sosa Cueto MD Primary Care Provider [phone] Allergies Active Allergy Reactions Criticality Noted Date Comments Cephalexin Unknown Low 12/25/2008 Other Reaction(s): Affects muscles Ofloxacin Hallucinations,Rash 01/02/2019 Penicillins Unknown 01/02/2019 Medications ascorbic acid (VITAMIN C) 500 mg chewable tablet Chew 1 (one) time each day. Active acetaminophen (TYLENOL) 325 mg tablet Take 2 tablets (650 mg total) by mouth. 02/16/20 22 Active albuterol 2.5 mg /3 mL (0.083 %) nebulizer solution INHALE 2.5MG 3 ML) VIA NEBULIZER EVERY 4 TO 6 HOURS NEEDED FOR SHORTNESS OF BREATH OR WHEEZING 08/21/20 23 Active Symbicort 160-4.5 mcg/actuation inhaler Inhale 2 puffs by mouth 2 (two) times a day. Active fluticasone propionate (FLONASE) 50 mcg/actuation nasal spray 2 sprays 1 (one) time each day. 03/05/20 24 Active LORazepam (ATIVAN) 0.5 mg tablet Take 1 tablet (0.5 mg total) by mouth 1 (one) time each day if needed. 10/04/19 19 Active Spiriva Respimat 2.5 mcg/actuation inhalation spray Inhale 2 puffs by mouth 1 (one) time each day. Active triamcinolone (KENALOG) 0.1 % cream Apply 1 each topically. 05/24/20 21 Active albuterol HFA (PROAIR HFA ; PROVENTIL HFA ; VENTOLIN HFA) 90 mcg/actuation inhaler Inhale 2 puffs by mouth every 6 (six) hours if needed for wheezing. Active calcium carbonate/arabella min D3 (CALCIUM + D ORAL) Take 1 tablet by mouth 1 (one) time each day. Active lisinopriL (PRINIVIL,ZEST RIL) 10 mg tablet Take 1.5 tablets (15 mg total) by mouth 1 (one) time each day. 135 tablet 1 12/05/19 25 Active metoprolol succinate (TOPROL-XL) 25 mg 24 hr tablet TAKE ONE TABLET BY MOUTH EVERY DAY 90 tablet 1 12/26/19 25 Active omeprazole (PriLOSEC) [address] capsule Take 1 capsule (20 mg total) by mouth 1 (one) time each day in the morning. 90 capsule 1 01/01/20 25 Active lovastatin (MEVACOR) 40 mg tablet TAKE ONE TABLET BY MOUTH DAILY AT BEDTIME 90 tablet 1 02/05/20 25 Active estradioL (ESTRACE) 0.01 % (0.1 mg/gram) vaginal cream Apply 0.5 g (a pea sized amount) to the vaginal opening with your finger fnightly or two weeks, then MWF thereafter. 42.5 g 1 02/14/20 25 Active meclizine (ANTIVERT) 12.5 mg tablet TAKE ONE TABLET BY MOUTH THREE TIMES A DAY 90 tablet 2 04/07/20 25 Active meclizine (ANTIVERT) 12.5 mg tablet TAKE ONE TABLET BY MOUTH THREE TIMES A DAY 90 tablet 5 10/09/19 25 025 Discontinued Active Problems Problem Noted Date Diagnosed Date Urinary tract infection symptoms 02/18/2025 Postcoital bleeding 02/18/2025 Assessment & Plan (02/18/2025 4:47 PM EDT): Likely related to atrophy. I recommended she use a lubricant for stimulation and make sure her partner has soft hands or be a little more gentle. She was offered use of estradiol cream and accepted. I recommended pt treat with estrogen cream which should be applied with her finger at the introitus nightly x 2 weeks, then MWF for maintenance. I reviewed amount and area of application and need for ongoing use for effect. I reviewed relative safety of topical localized estradiol therapy. Essential tremor 11/29/2024 Cervical radiculopathy 12/25/2023 Chronic neck pain 12/25/2023 Abnormal MRI, cervical spine 12/25/2023 Mild left ventricular hypertrophy 12/16/2020 Overview (09/03/2024): EF 50-55%. Following ith Dr. Willoughby Hypertension 12/18/2019 Assessment & Plan (11/29/2024 11:30 AM EST): Orders: Basic metabolic panel; Future Hyperparathyroidism ([facility] V24) 01/21/2019 Overview (09/03/2024): parathyroidectomy Mycobacterial disease 01/21/2019 [...] malignant cells. Hypercalcemia 02/23/2018 COPD (chronic obstructive pu lmonary disease) ([facility] V24, [facility] V28) 10/08/2015 Assessment & Plan (11/29/2024 11:30 AM EST): Osteoporosis 11/24/2014 Overview (09/03/2024): 08/08 T score spine -0.4 hip -2.7 08/10 T score spine -0.2 hip -2.9 07/14 T score spine -0.9 hip -3.1 Assessment & Plan (11/29/2024 11:30 AM EST): Colon polyp 06/18/2012 Overview (09/03/2024): Tubular adenoma times 2 04/07, 03/12 Vitamin D deficiency 11/04/2011 Psoriasis 09/14/2009 MRSA (methicillin resistant Staphylococcus aureus) infection 09/14/2009 Overview (09/03/2024): Hand cellulitis and lymphangitis, MRSA positive Eczema 07/24/2009 Hypercholesteremia 12/26/2007 Assessment & Plan (11/29/2024 11:30 AM EST): GERD (gastroesophageal reflux disease) 8 Assessment & Plan (11/29/2024 11:30 AM EST): Anxiety 10/26/2007 Assessment & Plan (11/29/2024 11:30 AM EST): Resolved Problems Problem Noted Date Diagnosed Date Resolved Date Postcoital bleeding 09/11/2024 11/30/19 25 Assessment & Plan (09/11/2024 8:36 AM EST): I counseled Danni that there is no evidence of cause in the vagina or on the cervix. I recommended pelvic US which will also evaluate the cramping. Pelvic cramping 09/11/2024 11/29/2024 Assessment & Plan (09/11/2024 8:37 AM EST): Will order pelvic US. Did recommend she work on rescheduling colonoscopy. Tuberculosis 09/03/2024 11/29/2024 Encounters Date Type Department Care Team Description 02/13/2025 10:00 AM EDT Office Visit Obstetrics and Gynecology [address] [phone] Carmen Vargas MD Postcoital bleeding (Primary Dx); Urinary tract infection symptoms 02/13/2025 Telephone Obstetrics and Gynecology - [address] [phone] Carmen Vargas MD Results 01/29/2025 Telephone Obstetrics & Gynecology - [address] [phone] Emely Patel RN 01/29/2025 Telephone Urogynecology - [address] [phone] Ashley Jovel MD Request For Order(s) 01/27/2025 2:00 PM EDT Office Visit Urogynecology [address] [phone] Ashley Jovel MD Sensation of pressure in bladder area (Primary Dx); Smoking history; UTI symptoms; PCB (post coital bleeding) from Last 3 Months Immunizations Name Administration [...] History Surgery Date Site/Laterality Comments LUMBAR LAMINECTOMY OTHER SURGICAL HISTORY - 1979 PROCEDURE: IA WEDGE RESCJ/BISCTJ OVARY UNI/BI; COMMENT: ovarian cystectomy CHOLECYSTECTOMY ESOPHAGOGASTRODUODENOSCOPY 04/24/2012 normal COLONOSCOPY 11/06/2009 adenomas; repeat in three years. COLONOSCOPY W/ POLYPECTOMY 04/14/2014 adenomas; repeat in 3 yrs COLONOSCOPY 03/13/2018 Diminutive adenomas and hyperplastic polyps; hemorrhoids; repeat in 5 yrs under propofol APPENDECTOMY 04/2024 SCREENING MAMMOGRAM 09/12/2024 Bilateral Medical History Medical History Date Comments Anxiety 10/26/2007 Hypercholesteremia 12/26/2007 Eczema 07/24/2009 Esophageal reflux Colon polyp 06/18/2012 Osteoporosis 11/24/201408/08 T score sp ine -0.4 hip -2.7 Emphysema lung ([facility] V24, [facility] V28) 016 Lung nodule 11/07/2018 New lung mass rl l 10/13 Hyperparathyroidism ([facility] V24) 01/21/2019 Mycobacterial disease 01/21/2019 Hypertension 12/18/2019 Essential tremor 11/29/2024 Family History Medical History Relation Name Comments [...] care for your loved ones. For example, children's institution attendant or elderly care for an older adult? [...] What is your living situation? 1 11/06/2023 Comments No Sex and Gender Information Value Date Recorded Sex Assigned at Not on file Legal Sex Female 4:28 PM EST Gender Identity Not on file Sexual Orientation Not on file Obstetrics History Para Term AB IAB SAB Ectopic Multiple Livin g Live Births 5 3 3 3 3 Date Outcome GA Total Labor Labor/2nd/3rd Weight Sex Type Anes PTL Renata A1 A5 Name Clin Term Term Term Last Filed Vital Signs Vital Sign Reading Time Taken Comments Blood Pressure 138/66 02/13/2025 9:59 AM EDT Pulse 78 02/13/2025 9:59 AM EDT Temperature 36.1 C (96.9 F) 11/29/2024 11:05 AM EST Respiratory Rate 12 02/13/2025 9:59 AM EDT Oxygen Saturation 96% 11/29/2024 11:05 AM EST Inhaled Oxygen Concentration - - Weight 56.7 kg (125 lb) 02/13/2025 9:59 AM EDT Height 157.5 cm (5' 2 ) 02/13/2025 9:59 AM EDT Body Mass Index 22.86 02/13/2025 9:59 AM EDT Plan of Treatment Upcoming Encounters Date Type Department Care Team (Late st Contact Info) Description 05/16/2025 2:00 PM EDT Office Visit Obstetrics and Gynecology [address] [phone] Kesha Funes, [facility] [address] [place] [address] 06/02/2025 8:30 AM EDT Office Visit Adult Medicine [address] [phone] Brittny Jackson PA [address] [place] [address] Health Maintenance Due Date Last Done Comments Cervical Cancer Screening: HPV 1977 Zoster Vaccines (1 of 2) 2006 RSV Immunization Adult Patients (1 - Risk 60-74 years 1-dose series) 2016 Colorectal Cancer Screening: Colonoscopy 03/13/2023 03/13/2018 COVID-19 Vaccine ( season) 2024 01/08/2021, 12/11/2020 Influenza Vaccine (#1) 2025 , 05/31/2022, 07/02/2021, Additional history exists Social Influencers of Health Screening 09/05/2025 09/05/2024 Falls Risk Assessment 11/29/2025 11/29/2024, 024 Medicare Annual Wellness Visit 11/29/2025 11/29/2024 Hypertension/CHF/CAD Annual BMP Blood Test 12/02/2025 12/02/2024, 03/18/2024 Breast Cancer Screening 09/12/2026 09/12/20, 09/06/2023, 08/30/2022, Additional history exists Pneumococcal Vaccine: 50+ Years (3 of 3 - PCV20 or PCV21) 10/26/2026 10/26/2021, 08/08/2016 DTaP,Tdap,and Td Vaccines (3 - Td or Tdap) 07/18/2028 07/18/2018, 12/26/2007 Cholesterol Screening (Lipid Panel) 07/18/2029 07/18/2024 Osteoporosis Screening (Bone Density Screening) 07/27/2032 07/27/2022, 07/21/2020 Hepatitis C Screening Addressed 06/17/2013 Overri dden with the intention of not completing the topic Depression Screening Completed 11/29/2024 HIB Vaccines Aged Out No longer eligi [...] patient's age to complete this topic Meningococcal B Vaccine Aged Out No l onger eligible based on patient's age to complete this topic RSV Immunization Patients Under 20 months Aged Out No longer eligible based on patient's age to complete this topic Varicella Vaccines Aged Out No longer eligible based on patient's age to complete this topic Procedures Procedure Name Priority Date/Time Associated Diagnosis Comments POC URINE AUTO W/O MICRO Routine 02/13/2025 10:08 AM EDT Urinary tract infection symptoms NON-GYNECOLOGIC CYTOLOGY Routine 01/27/2025 3:49 PM EDT Sensation of pressure in bladder area Smoking history UTI symptoms POC URINE AUTO W/O MICRO Routine 01/27/2025 2:30 PM EDT Sensation of pressure in bladder area BASIC METABOLIC PANEL Routine 12/02/2024 12:01 PM EDT Primary hypertension Fatigue, unspecified type MG MAMMO DIGITAL SCREENING W JOE BILAT Routine 09/12/2024 8:16 AM EST Encounter for screening mammogram for breast cancer DXA BONE DENSITY STUDY 1+ SITS AXIAL SKEL Routine 07/27/2022 2:13 PM EDT Hyperparathyroidism, unspecified ([facility] V24) from Last 3 Months or Most Recently Relevant to Health Maintenance Results * (ABNORMAL) POC Urine Auto W/O Micro (02/13/2025 10:08 AM EDT) Only the most recent of2 resultswithin the time period is included. Leukocytes UA POC Negative Negative Nitrite UA POC Negative Negative Urobilinogen UA POC Negative Negative Protein UA POC Negative Negative PH UA POC 5.0 5.0 - 9.0 Blood UA POC Negative Negative, Trace Specific [place] UA POC 1.000(A) 1.001 - 1.035 Ketones UA POC Negative Negative Bilirubin UA POC Negative Negative Glucose UA POC Normal Normal, Trace Urine Urine specimen obtained by clean catch procedure / Unknown 02/13/2025 10:08 AM EDT Carmen Vargas MD POINT OF CARE TEST ENTER/ED IT ORDERABLES Final Result * Non-gynecologic cytology (01/27/2025 3:49 PM EDT) Final Diagnosis A. Urine, Catheterized (ThinPrep): Negative for high grade urothelial carcinoma. 01/30/2025 2:14 PM EDT [facility] Specimen A Adequacy Satisfactory for evaluation 01/30/2025 2:14 PM EDT [facility] Gross Description A. Urine, Catheter, Urine: Received 30 ml of pale yellow fluid; 1 ThinPrep 01/30/2025 2:14 PM EDT [facility] Disclaimer Unless otherwise specified, all tissue is 10% NB formalin fixed and paraffin embedded. Technical cytopathology services provided by [facility], at [address] [place] [address] (CLIA # [id number]/Axel Hunt MD, Public Health.) 01/30/2025 2:14 PM EDT [facility] Urine Urine specimen from urinary conduit / Unknown 01/27/2025 3:49 PM EDT 01/29/2025 2:15 PM EDT us Ashley Jovel MD LAB CYTOLOGY ORDERABLES Final Re sult [facility] [address] [place] [address], [place] [phone] * (ABNORMAL) Basic metabolic panel (12/02/2024 12:01 PM EDT) Sodium 139 133 - 145 mmol/L LAB CHEMISTRY METHOD 12/02/2024 2:51 PM EDT [facility] Potassium 4.5 3.5 - 5.5 mmol/L LAB CHEMISTRY METHOD 12/02/2024 2:51 PM EDT [facility] Chloride 104 96 - 110 mmol/L LAB CHEMISTRY METHOD 12/02/2024 2:51 PM EDT [facility] CO2 29 21 - 32 mmol/L LAB CHEMISTRY METHOD 12/02/2024 2:51 PM EDT [facility] Anion Gap 6 3 - 11 LAB CHEMISTRY METHOD 12/02/2024 2:51 PM EDT [facility] Glucose 109(H) 70 - 100 mg/dL LAB CHEMISTRY METHOD 12/02/2024 2:51 PM EDT [facility] BUN 10 5 - 25 mg/dL LAB CHEMISTRY METHOD 12/02/2024 2:51 PM EDT [facility] Creatinine 0.86 0.50 - 1.10 mg/dL LAB CHEMISTRY METHOD 12/02/2024 2:51 PM EDT [facility] eGFR 74 >=60 mL/min/1. 73m2 LAB CHEMISTRY METHOD 12/02/2024 2:51 PM EDT [facility] Comment:Calculation based on the Chronic Kidney Disease Epidemiology Collaboration (CKD-EPI) equation refit without adjustment for race. BUN/Creatinine Ratio 11.6 LAB CHEMISTRY METHOD 12/02/2024 2:51 PM EDT [facility] Calcium 9.7 8.5 - 10.5 mg/dL LAB CHEMISTRY METHOD 12/02/2024 2:51 PM EDT [facility] Blood Venous blood specimen / Unknown Venipuncture / Unknown 12/02/2024 12:01 PM EDT 12/02/2024 12:01 PM EDT us Sosa Cueto MD LAB BLOOD ORDERABLES Final Resul t [facility] [address] [place] [address], [place] [phone] * MG Mammo Digital Screening w Joe [...] is recommended in 1 year. Mammo Location: [facility], [address] [place] [address], [id number], . -------- FINAL REPORT -------- Dictated By: Reba Scott Dictated Date: 09/12/2024 12:13 ET Assigned Physician: Reba Scott Reviewed and Electronically Signed By: Reba Scott Signed Date: 09/12/2024 12:18 ET Workstation ID: [id number] Transcribed By: Self Edit Transcribed Date: 09/12/2024 12:13 ET Narrative 09/12/2024 12:18 PM EST STUDY: Bilateral screening mammography with tomosynthesis and CAD TECHNIQUE: Bilateral full-field digital screening mammography is obtained and read in conjunction with computer-aided detection. Tomosynthesis as well as 2-D C view imaging [...] is recommended in 1 year. Mammo Location: [facility], [address] [place] [address], [id number], . -------- FINAL REPORT -------- Dictated By: Reba Scott Dictated Date: 09/12/2024 12:13 ET Assigned Physician: Reba Scott Reviewed and Electronically Signed By: Reab Scott Signed Date: 09/12/2024 12:18 ET Workstation ID: [id number] Transcribed By: Self Edit Transcribed Date: 09/12/2024 12:13 ET Sosa Cueto MD IM BI PROCEDURES Final Result * DXA BONE DENSITY STUDY 1+ SITS AXIAL SKEL (07/27/2022 2:13 PM EDT) Anatomical Region Laterality Modality Bone Densitometr y 03/16/2022 10:0 2 AM EDT Narrative 07/27/2022 2:25 PM EDT BONE DENSITY (DEXA) Lumbar Spine T-score is [...] to have osteoporosis by WHO criteria. The [facility] Department of Internal Medicine recommends using [...] alternative screening schedule based on abdi Sainz., [facility] October 13, 2011 for patients with osteopenia [...] to have osteoporosis by WHO criteria. The [facility] Department of Internal Medicine recommendsusing National [...] 15 years Charlette PEDRAZA IMAndrez DXA PROCEDURES Final Re sult from Last 3 Months or Most Recently Relevant to Health Maintenance Insurance [employer] MEDICARE Member Subscriber Plan / Payer (Ef fective 2022-Present) Name:Danni Zayas Relation to Subscriber:Self Name:Danni Zayas Payer ID:[id number] Group ID:[id number] Type:Not on file Address: [address] [facility] [place] [address] Care Teams Pharmacy Scheduler Relationship Specialty Start Date End Date Sosa Cueto MD [address] [place] [address] PCP - General 01/01/01
--- NOTE | 2025-04-22 08:55 | A.OFFVIS_ITS ---
Vital Signs 04/22/25 08:56 Height 5 ft 2.5 in Intake Visit Reasons: 6 Weeks Allergies cephalexin (Keflex) Allergy (Severe, Verified 04/22/25 08:56) convulsions penicillin V Allergy (Severe, Verified 04/22/25 08:56) Convulsion Medication List - Last Reconciled 04/22/25 by Linnea Noriega CNP albuterol sulfate 2.5 mg (3 mL) inhalation Q4-6H PRN albuterol sulfate 90 mcg/actuation 2 puffs inhalation Q6H PRN ascorbic acid (vitamin C) (Vitamin C) 250 mg PO DAILY azithromycin For 250 mg dose pack: take 500 mg today (day 1), then 250 mg for 4 days (days 2-5) PO cholecalciferol (vitamin D3) (Vitamin D3) 25 mcg PO DAILY fluticasone propionate 50 mcg/actuation (Flonase Allergy Relief) 2 sprays intranasal DAILY 90 days lisinopril 15 mg PO BEDTIME lorazepam 0.5 mg PO DAILY PRN lovastatin 40 mg PO BEDTIME meclizine 12.5 mg orally 0.5 tablets twice a day and 1 tablet at bedtime; metoprolol succinate ER 25 mg PO DAILY multivitamin 1 tab PO DAILY nebulizers As directed omeprazole 20 mg PO DAILY oxycodone 5 mg PO Q6H PRN sulfamethoxazole-trimethoprim 800-160 mg (Bactrim DS) 1 tab PO BID 2 days Symbicort 160-4.5 mcg/actuation (budesonide-formoterol) 2 puffs PO BID NS tiotropium bromide 2.5 mcg/actuation (Spiriva Respimat) 2 puffs PO DAILY HPI Comments Details: Vertigo was better with lorazepam 0.5mg at bedtime. One episode in last 6 weeks where she had to lay down for about 1 hour. Eyes do not feel like they are jumping as much. Has eye exam scheduled for 04/2025. No falls. Anxiety was better. Tremors are okay, notices more when stressed or tired. Notices more in jaw than hands and will also point it out to her. No functional impairment. No difficulty eating, drinking, or swallowing. She does not like how she felt with paroxetine and stopped medication. Was having more vertigo. Unable to tolerate more than meclizine 12.5mg 1/2 tab during the day as she is too drowsy with medication. Has some trouble hearing voices on TV if there is also music playing. Tried sertraline for about 3 weeks, was tapia and crying and stopped medication.? Has?constant, mild vertigo, feeling of moving side to side. Was feeling more anxious. Does a lot of rocking side to side or back and forth as stress relief. Gets ringing in ear and ear gets blocked for period of time before big attack, usually R ear. Has to stay in bed for few days with nausea and vomiting. Using meclizine 1/2 tab twice a day and 1 tab at bedtime which helps. Uses lorazepam as needed when symptoms worse or more anxious which helps. She does not like to use meclizine and lorazepam together. Hearing may be getting slightly worse, has trouble hearing talking on TV shows when there is also music playing in background of show. Tremor is okay. She does not usually notice it. will notice jaw tremor and point it out to her. No functional impairment. Had cervical spine posterior decompression laminectomy in 03/2024. Bilateral arm numbness, tingling and paresthesia to left hand resolved. No vertigo after surgery until bad attack in 05/2024 with room spinning and nausea, lasting all day. Ears were blocked for about 1.5 weeks before this. Some ringing in hears on and off, usually with attacks. Constant, mild vertigo with feeling of moving side to side every day since attack. noted jaw tremor earlier in 2023. Sometimes it is more severe and feels her glasses moving on her face. No mobility issues. No difficulty eating, drinking, or swallowing. Her mother had tremors. Her daughter has PD and has DBS. MRI neck showed some compression. Was having occasional left-hand tinging and paresthesia, numbness to both arms. Every day has constant feeling of head moving side to side, once a month bad attack with room spinning, nausea, and vertigo. Lobectomy for non-tuberculous mycobacterium infection. Hx of COPD, hypertension, and hyperlipidemia. Was in PT for some shoulder problems in 11/2019. Her therapist did some cervical traction and manipulation and she immediately developed vertigo which has never gone away. Tried some labyrinthine desensitization exercises which did not help. Uses meclizine 12.5mg when necessary because it makes her tired. Some days feels like her eyeballs are jumping side to side. Has some decreased hearing in right ear and some tinnitus. Had ENT evaluation which was unremarkable. MRI brain in 09/2022 reported below, shows some white matter microvascular changes, but otherwise unremarkable. [facility] Medical History (Updated 04/22/25 @ 08:59 by Linnea Noriega CNP) Benign essential tremor Tinnitus Vertigo History of MRSA infection SOB (shortness of breath) On beta salena at home Hyperparathyroidism, primary Anxiety GERD (gastroesophageal reflux disease) Hyperlipidemia Hypertension Osteoporosis (~2015) Personal history of nicotine dependence Pulmonary nodules Mycobacterial disease COPD (chronic obstructive pulmonary disease) Surgical History (Updated 04/22/25 @ 09:19 by Linnea Noriega CNP) H/O excision of lamina of cervical vertebra for decompression of spinal cord Hx of parathyroidectomy H/O colonoscopy History of esophagogastroduodenoscopy (EGD) Hx of exploratory laparotomy Hx of tubal ligation History of lumbar laminectomy History of cholecystectomy History of lung surgery Social History Are you a primary home health care respiratory therapist to a significant other at home: No Do you presently have visiting nurse or other home services: No Patient Tobacco Use Status: Former Tobacco user Tobacco use type: Cigarette Years Smoked: 20 years Review of Systems Const Denies chills, Denies daytime sleepiness, Denies difficulty sleeping, Denies fatigue, Denies fever(s), Denies frequent falls, Denies headache(s), Denies increased appetite, Denies poor appetite, Denies snoring, Denies weakness, Denies weight gain and Denies weight loss Eyes Denies loss of vision ENT Denies vertigo, Reports dizziness, Denies headache(s) and Denies neck pain Card Denies chest pain at rest, Denies chest pain with activity, Denies syncope, Rosalino es leg edema, Denies palpitations, Denies dyspnea and Denies dyspnea on exertion Resp Denies cough, Denies dyspnea, Denies dyspnea on exertion and Denies snoring GI Denies abdominal pain, Denies constipation, Denies heartburn, Denies diarrhea and Denies nausea Denies urinary frequency, Denies urinary incontinence and Denies urinary urgency Musc Denies abnormal gait, Denies back pain, Denies myalgias, Denies arthralgias, Denies neck pain, Denies numbness and Denies tingling Neuro Denies abnormal gait, Denies vertigo, Reports dizziness, Denies syncope, Denies frequent falls, Denies headache(s), Denies lack of coordination, Denies loss of vision, Denies memory loss, Denies numbness, Denies Other visual disturbances, Denies restless legs, Denies seizure-like activity, Denies tingling, Denies paresthesias, Reports tremor(s) and Denies weakness Psych Reports anxiety, Denies depression, Denies auditory hallucinations, Denies memory loss and Denies visual hallucinations Endo Denies fatigue and Denies palpitations Physical Exam Const Other: General Appearance:? normal, in no acute distress. Heart:? S1, S2 normal, no murmurs. Lungs:? clear anteriorly and posteriorly. Musculoskeletal:? normal. Extremities:? no edema. Psych:? alert, oriented, cognitive function intact, cooperative with exam. Neuro Other: Abnormal Neurological Findings:?Very mild jaw tremor and of BUE on sustained posture. Mental Status: alert and oriented X 3. Normal attention, orientation, memory, and affect. Cranial Nerves: Pupils are equal, round, and reactive to light. External ocular muscles are intact. Visual romeo are full, no ptosis. Face is symmetrical, no facial weakness or droop. Facial sensations are normal. Tongue protrudes in midline. Palate elevates symmetrically. Shoulder shrugging is normal Motor Examination: Normal muscle tone, bulk and strength. No atrophy or fasciculations. No drift of the extended upper extremities. DTR 2+. Plantars are flexor. Straight Leg Raisin degrees. Sensory Exam: Normal light touch, temperature, pinprick, vibration, and joint- position sensations. Rhomberg sign is absent. Coordination: No ataxia. No titubation. [id number], brdi-oxzg-bnni test, and rapid alternating movements were normal. Gait Exam: Within normal limits. Cerebellar Signs: Ltcixv-vp-[id number] and ceej-ep-coax is normal. No dysdiadochokinesia. Extrapyramidal System: Tremor as above. No rigidity with normal facial expressions. No bradykinesia. No bradyphrenia. Normal arm swing and posture. No propulsion or retropulsion. Speech: Normal. No dysphasia or dysarthria. Assessment & Plan Assessment & Plan (1) Vertigo: Code(s): R42 - Dizziness and giddiness Category: Medical Plan: Continue lorazepam 0.5mg 1 tablet at bedtime Continue meclizine 12.5mg 0.5 tablet twice a day and 1 tablet at bedtime. (2) Benign essential tremor: Code(s): G25.0 - Essential tremor Category: Medical Plan: No functional impairment. Medication was not indicated at this time. (3) Tinnitus: Code(s): H93.19 - Tinnitus, unspecified ear Category: Medical Qualifiers: Laterality: unspecified laterality Qualified Code(s): H93.19 - Tinnitus, unspecified ear (4) Anxiety: Code(s): F41.9 - Anxiety disorder, unspecified Category: Medical (5) Cervical radiculopathy: Code(s): M54.12 - Radiculopathy, cervical region Category: Medical Plan Meds tried: sertraline, paroxetine Coding Level of Care Code Est Pt Level 4 (67745) Diagnoses Vertigo R42 Benign essential tremor G25.0 Tinnitus, unspecified laterality H93.19 Laterality: unspecified laterality Anxiety F41.9 Cervical radiculopathy M54.12
== END 2025-04-22 09:11 | disposition home or self-care (01) ==
LOC: HO.HSM 08:27
PROVIDERS: PCP Internal Medicine; Referring Provider Internal Medicine; Visit Provider Registered Nurse
DX: R42 Dizziness and giddiness (principal); G25.0 Essential tremor; H93.19 Tinnitus, unspecified ear; F41.9 Anxiety disorder, unspecified; M54.12 Radiculopathy, cervical region
CPT/HCPCS: 99214

== ENCOUNTER → 2025-04-22 08:26 | Outpatient (BNVA) | payer OTHER, SELFPAY | PROVIDERS: PCP Internal Medicine; Referring Provider Internal Medicine; Visit Provider Registered Nurse | DX: R42 Dizziness and giddiness (principal); G25.0 Essential tremor; H93.11 Tinnitus, right ear; F41.9 Anxiety disorder, unspecified; M54.12 Radiculopathy, cervical region | CPT/HCPCS: 99212 ==

== ENCOUNTER 2025-08-15 14:25 | Outpatient (AMB) | payer OTHER, SELFPAY ==
[2025-08-15 14:40] VITALS: BP 130/56; PULSE 84; O2SAT 97; BMI 23.0
--- NOTE | 2025-08-15 14:40 | A.OFFVIS_ITS ---
Vital Signs 08/15/25 14:40 Height 5 ft 2.5 in Weight 127 lb 13.89 oz BMI 23.0 BP 130/56 L Blood Pressure Location Lt brachial Position Sitting Pulse 84 Pulse Source Pulse Oximeter Pulse Oximetry (%) 97 Oxygen Delivery Method Room Air Intake Visit Reasons: copd Software Development Coordinator Required: No Accompanied by: Spouse Allergies cephalexin (Keflex) Allergy (Severe, Verified 08/15/25 14:43) convulsions penicillin V Allergy (Severe, Verified 08/15/25 14:43) Convulsion HPI Comments Details: Patient is a 69 y/o woman with a history of COPD, pulmonary nodules and nontuberculous mycobacteria infection. She is status post resection in now with no evidence of any recurrence. She still has some chest discomfort at the site of the surgery on her right side. She did have a pneumothorax that was therefore a significant amount of time after surgery. Now has resolved. She is feeling b zia. She is no longer requiring the neb treatments. Will try to place her back in inhalers. However, she does not do well with inhaled cortical steroids at a powdered. She gets irritation of the throat and other side effects. Therefore, will have to place her HFA formulation. She has done well Symbicort in the past. She has failed Advair and felt Breo as well as other powder inhalers. Her CT sca n of the chest was done we did reviewed in the office. It appears that she does have the severe emphysema primarily upper lung zone in mid lung predominant but still preserving her bases specially on the right. No new nodules appreciated. Her surgical area appears to be completely healed. She still having some pain at that site however. 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 She continues her respiratory therapy. She is maintaining her weight 114. She continues to have a good appetite. This point the patient is being evaluated for parathyroid issues. From pulmonary standpoint I do believe she can handle general anesthesia but the patient does have high risk for perioperative pulmonary complications which include which hypoxia, atelectasis, prolonged mechanical ventilation and pneumonia. Therefore, based on the fact that she is still recovering from her other surgeries my 1st recommendation is for her to avoid surgery if possible. If however surgery is a necessity, then, she is medically optimized from a respiratory status. 12/06/2022 the patient is here for a pulmonary follow-up visit. The patient overall is doing well. She continues use respiratory therapy with good effect. Her weight continues to be stable. Her appetite is good. The patient did have a recent CT scan of the chest that we personally reviewed the report. It appears that she has stable pulmonary nodules. She does have a calcified nodule which consistent with granuloma. No evidence of any active mycobacterial disease which is reassuring. No changes at this time. Will plan to follow-up with her CT scan in a year's time and also follow-up in a year with pulmonary function studies. If the patient has any issues prior to this she is to call the office for an earlier evaluation. 12/05/2023 the patient is here for a pulmonary follow-up visit. The patient has been concerned because she is developing worsening cough in addition to some night sweats. She states that initially when she became sick with the smoldering mycobacterial disease she started with these symptoms. She did recently have a CT scan done at [facility]. However, I do not have it available. I did request from [facility] but has yet to arrive via effects. I will give her a call once I have it available. In the meantime we did review her pulmonary function studies. It appears that the patient does have severe COPD. She has severe hyperinflation and air trapping due to the COPD. And also diffusion impairment. We talked about the importance of breathing exercises and helping her with her air trapping. Therefore will go ahead and start her on pulmonary rehab that I believe will have excellent benefits with the patient. In the meantime we also talked about other alternatives including more invasive or semi-invasive procedures such as the [address] valves for help with her significant air trapping as a lung volume reduction intervention. The patient will look into it and will read up in to the benefits and risks of this procedure. She is concerned because when she did have surgery in the past for her pulmonary nodule she did have a prolonged air leak and pneumothorax. The patient will continue with current respiratory therapy. Once I have the CAT scan available I will call her. She has not able to give us any sputum for culture. So if we see any significant changes in the CT scan or any suspicious changes will go ahead and talk to the patient about having a bronchoscopy in order to get some deep cultures. 03/05/2024 the patient is here for a pulmonary follow-up visit. The patient has been doing very well. She continues to participate in pulmonary rehabilitation. This has been very affecting beneficial for her. She continues with respiratory therapy which includes Symbicort and Spiriva. She does not use her albuterol regularly. Typically less than 2 times a week. The patient is having neurological symptoms due to severe spinal stenosis in the cervical spine. She did see a internet security specialist. It looks like she is going to need surgery. At this point the patient is medically optimized from a respiratory status in January 2 proceed with surgery. She does have moderate risk for perioperative pulmonary complications which include; bronchospasms, atelectasis, hypoxia, pneumonia, prolonged mechanical ventilation. Although these are less likely since she is doing well. At this point I would have her proceed with surgery and anesthesia. She needs to get this taken care of based on the severity. The patient will continue with pulmonary rehabilitation afterwards whenever safe from a surgical standpoint. 10/01/2024 the patient is here for a pulmonary follow-up visit. Overall she is doing very well from respiratory status. She continues using inhalers as prescribed. She has not had any flare-ups and has not required any prednisone. The patient did have her cervical surgery in the summer of 2023 she did very well. Unfortunately right after that she developed a perforated appendicitis requiring surgery as well. She also recovered from that. The patient denies any worsening cough chest congestion or weight loss. The patient has a history of mycobacterial disease but it was treated after surgery. She is scheduled to have a repeat CT scan to the lung cancer screening program in November of 2024. She will follow-up in a year's time. If she develops any symptoms or any concerning issues prior to that she will call for an earlier assessment. 08/15/2025 the patient is here for pulmonary follow-up visit. The patient is complaining of worsening shortness of breath. She continues on the Spiriva and the Symbicort. But she feels like she also has chest tightness and difficulty with any activities of daily living. She has became concerned. She is participating in the lung cancer screening program. Her last CT scan was back in spring. And she was told that she would need a repeat CAT scan in a year's time because everything stable. Will have her at this point start Daliresp to help her with the decreasing the prednisone need and also send a prednisone taper. The patient understands that with the Daliresp she needs to be careful not to have significant weight loss. She can not use theophylline since she can not tolerate it because of palpitations. The patient will c ontinue her respiratory therapy and she is going to start using her nebulizer twice a day to provide her bronchodilation. If the patient is no better she is going to come in for chest x-ray and blood work. Otherwise if she is doing okay she is still going to have the x-ray in the blood work but would wait a couple weeks. [facility] Medical History (Updated 08/17/25 @ 22:48 by Anton Centeno MD) Benign essential tremor Tinnitus Vertigo History of MRSA infection SOB (shortness of breath) On beta salena at home Hyperparathyroidism, primary Anxiety GERD (gastroesophageal reflux disease) Hyperlipidemia Hypertension Osteoporosis (~2015) Personal history of nicotine dependence Pulmonary nodules Mycobacterial disease COPD (chronic obstructive pulmonary disease) Surgical History (Updated 04/22/25 @ 09:19 by Linnea Noriega CNP) H/O excision of lamina of cervical vertebra for decompression of spinal cord Hx of parathyroidectomy H/O colonoscopy History of esophagogastroduodenoscopy (EGD) Hx of exploratory laparotomy Hx of tubal ligation History of lumbar laminectomy History of cholecystectomy History of lung surgery Social History Are you a primary healthcare marketer to a significant other at home: No Do you presently have visiting nurse or other home services: No Patient Tobacco Use Status: Former Tobacco user Tobacco use type: Cigarette Years Smoked: 20 years Review of Systems Const Denies night sweats ENT Denies change in voice, Denies lip swelling, Denies mouth pain, Reports nasal congestion, Reports nasal discharge and Denies tongue swelling Card Denies chest pain and Reports dyspnea on exertion Resp Denies chest congestion, Reports cough and Reports dyspnea on exertion GI Denies abdominal pain Musc Denies no additional complaints Neuro Denies Neuro-related abnormal movements Psych Denies no additional complaints Raad/Lymph Denies easy bleeding and Denies lymphadenopathy Aller/Immun Denies lip swelling and Denies tongue swelling Physical Exam Vital Signs: Last Vital Signs Pulse 84 08/15/25 14:40 BP 130/56 L 08/15/25 14:40 Pulse Ox 97 08/15/25 14:40 Oxygen Delivery Method Room Air 08/15/25 14:40 BMI result Body Mass Index 23.0 Const General: alert Neck Neck: Yes normal visual inspection, Yes full ROM and Yes no lymphadenopathy Chest Chest palpation & inspection: normal inspection of the chest Resp Effort & Inspection: normal respiratory effort and prolonged expiratory phase Auscultation: wheezes and diminished lung sounds Cardio Rate: regular rate Rhythm: regular rhythm Heart sounds: S1 normal heart sound present and S2 normal heart sound present GI Palpation (GI): Soft to palpation and nontender Auscultation: normal bowel sounds Skin General skin exam: rashes and/or lesions noted Assessment & Plan Assessment & Plan (1) COPD (chronic obstructive pulmonary disease): Code(s): J44.9 - Chronic obstructive pulmonary disease, unspecified Category: Medical Qualifiers: COPD type: COPD with acute exacerbation Qualified Code(s): J44.1 - Chronic obstructive pulmonary disease with (acute) exacerbation (2) Mycobacterial disease: Comment: status post treatment. no evidence of any residual disease Code(s): A31.9 - Mycobacterial infection, unspecified Category: Medical Plan start Prednisone taper Start Daliresp Bloodwork CXR PFTs Continue Symbicort continue Spiriva short-acting beta agonist as needed LDCT F/U 2-3 months Orders: Orders Erythrocyte Sedimentation Rate 08/15/25 J44.0 - Chronic obstructive pulmonary disease with (acute) lower respiratory infection Venous Blood Gas 08/15/25 J44.0 - Chronic obstructive pulmonary disease with (acute) lower respiratory infection XR chest 2V 08/15/25 J44.0 - Chronic obstructive pulmonary disease with (acute) lower respiratory infection PFT pulmonary function test 08/15/25 J44.0 - Chronic obstructive pulmonary disease with (acute) lower respiratory infection Complete Blood Count Auto Diff 08/15/25 J44.0 - Chronic obstructive pulmonary disease with (acute) lower respiratory infection Immunoglobulin E 08/15/25 J44.0 - Chronic obstructive pulmonary disease with (acute) lower respiratory infection Hypersensitive Pneumonitis Prf 08/15/25 J44.0 - Chronic obstructive pulmonary disease with (acute) lower respiratory infection, R91.8 - Other nonspecific abnormal finding of lung field Basic Metabolic Panel 08/15/25 J44.0 - Chronic obstructive pulmonary disease with (acute) lower respiratory infection Theophylline 08/15/25 J44.0 - Chronic obstructive pulmonary disease with (acute) lower respiratory infection Medications: New roflumilast (Daliresp) 250 mcg PO DAILY 30 tabs 11RF 30 days J44.9 - Chronic obstructive pulmonary disease, unspecified prednisone PO daily; Take 1 tab daily x 7 days, then 1 tab daily x 7 days 14 days 21 tabs 0RF prednisone PO daily; Take 2 tab daily x 7 days, then 1 tab daily x 7 days 21 tabs 0RF 14 days Coding Level of Care Code Complex visit Add On G2211 Diagnoses Chronic obstructive pulmonary disease with acute exacerbation J44.1 COPD type: COPD with acute exacerbation Mycobacterial disease A31.9 Time Spent (min) 18
--- OUTSIDE RECORDS SUMMARY | 2025-08-15 14:48 | XMS_ITS | Encounter Summary ---
Author Organization [facility] Address [address] [place] [address] Care Team Providers Care Sampling Theory Teacher Name Role Phone Sosa Cueto MD Primary Care Provider [phone] Encounter Details Date Type Department Care Team (Late st Contact Info) Description 07/17/2025 Results Follow-Up Adult Medicine [facility] [address], [place] [phone] Sosa Cueto MD [address] [place], [place] Social History Tobacco Use Types Packs/Day Years Used Date Smoking Tobacco: Former Cigarettes 0.5 33.6 0 1981 - 04/28/2015 Smokeless Tobacco: Never Alcohol Use Standard Drinks/Week Comments No 0 [...] care for your loved ones. For example, child care attendant school or elderly care for an older adult? [...] Date Recorded What is your living situation? Unrecognized valu e 09/05/2024 Comments No Sex and Gender Information Value Date Recorded Sex Assigned at Not on file Legal Sex Female 4:28 PM EST Gender Identity Not on file Sexual Orientation Not on file documented as of this encounter Plan of Treatment Upcoming Encounters Date Type Department Care Team (Late st Contact Info) Description 12/02/2025 8:30 AM EDT Office Visit Adult Medicine [address] [phone] Sosa Cueto MD [address] [place], [place] documented as of this encounter Visit Diagnoses Not on filedocumented in this encounter Additional Health Concerns Assessment Noted Time PHQ-9 Depression Total Score: 0 11/30/19 11:14 AM EST A fall risk assessment has been complete d for the patient 11/29/2024 11:13 AM EST documented as of this encounter Care Teams Sampling Theory Teacher Relationship Specialty Start Date End Date Sosa Cueto MD [address] [place] [address] PCP - General 01/01/01 documented as of this encounter
--- OUTSIDE RECORDS SUMMARY | 2025-08-15 14:48 | XMS_ITS | Clinical Summary ---
Author Organization [facility] [address] [place] [address] Address [address] [facility] [place] [phone] Phone Care Team Providers Care Accessories Repairer Name Role Phone Sosa Cueto MD Primary Care Provider [phone] Allergies Active Allergy Reactions Criticality Noted Date [...] mouth 1 (one) time each day. Active estradioL (ESTRACE) 0.01 % (0.1 mg/gram) vaginal cream Apply 0.5 g (a pea sized amount) to the vaginal opening with your finger fnightly or two weeks, then MWF thereafter. 42.5 g 1 02/14/20 25 Active lisinopriL (PRINIVIL,ZEST RIL) 10 mg tablet Take 1.5 tablets (15 mg total) by mouth 1 (one) time each day. 135 tablet 1 06/02/20 25 Active lovastatin (MEVACOR) 40 mg tablet Take 1 tablet (40 mg total) by mouth at bedtime. at bedtime 90 tablet 1 06/02/20 25 Active metoprolol succinate (TOPROL-XL) 25 mg 24 hr tablet Take 1 tablet (25 mg total) by mouth 1 (one) time each day. 90 tablet 1 06/02/20 25 Active meclizine (ANTIVERT) 12.5 mg tablet TAKE ONE TABLET BY MOUTH THREE TIMES A DAY 90 tablet 5 07/03/20 25 Active omeprazole (PriLOSEC) [address] capsule TAKE 1 CAPSULE BY MOUTH ONCE IN THE MORNING 90 capsule 1 07/20/20 25 Active omeprazole (PriLOSEC) [address] capsule Take 1 capsule (20 mg total) by mouth 1 (one) time each day in the morning. 90 capsule 1 06/02/20 25 025 Discontinued nitrofurantoin , macrocrystal-m onohydrate, (MACROBID) 100 mg capsule Take 1 capsule (100 mg total) by mouth 2 (two) times a day for 5 days. 10 each 07/14/20 25 025 Active Problems Problem Noted Date Diagnosed Date [...] EST): Orders: Basic metabolic panel; Future Hyperparathyroidism ([facility]/HCC V24) 01/21/2019 Overview (09/03/2024): parathyroidectomy Mycobacterial disease [...] 02/23/2018 COPD (chronic obstructive pu lmonary disease) ([facility] V24, [facility] V28) 10/08/2015 Assessment & Plan (11/29/2024 11:30 [...] Plan (09/11/2024 8:36 AM EST): I counseled Patti that there is no evidence of cause in the vagina or on the cervix. I recommended pelvic US which will also evaluate the cramping. Pelvic cramping 09/11/2024 11/29/2024 Assessment & Plan (09/11/2024 8:37 AM EST): Will order pelvic US. Did recommend she work on rescheduling colonoscopy. Tuberculosis 09/03/2024 11/29/2024 Encounters Date Type Department Care Team Description 07/17/2025 Results Follow-Up [address] [phone] Sosa Cueto MD 07/14/2025 3:15 PM EDT Office Visit [address] [phone] Sosa Cueto MD Dysuria (Primary Dx); Acute UTI; Primary hypertension; Hypercholesteremia; Chronic obstructive pulmonary disease, unspecified COPD type ([facility] [place], [facility] V28) 07/14/2025 Nurse Triage [address] [phone] Sosa Cueto MD 06/20/2025 8:45 AM EDT Office Visit Obstetrics and Gynecology [address] [phone] Kesha Funes CNM Vaginal atrophy (Primary Dx) 06/02/2025 8:30 AM EDT Office Visit [address] [phone] Brittny Jackson PA Primary hypertension (Primary Dx); Hypercholesteremia; Gastroesophageal reflux disease without esophagitis; Chronic obstructive pulmonary disease, unspecified COPD type ([facility] V24, [facility] V28); Vertigo; Essential tremor; Chronic fatigue; Low magnesium level; Vitamin D deficiency from Last 3 Months Immunizations Immunization Administration Dates Next Due Influenza Quadravalent, MDCK [...] LAMINECTOMY OTHER SURGICAL HISTORY - 1979 PROCEDURE: NE WEDGE RESCJ/BISCTJ OVARY UNI/BI; COMMENT: ovarian cystectomy [...] sp ine -0.4 hip -2.7 Emphysema lung (CMS/HCC V24, CMS/HCC V28) 016 Lung nodule 11/07/2018 New lung mass rl l 10/13 Hyperparathyroidism (CMS/HCC V24) 01/21/2019 Mycobacterial disease 01/21/2019 Hypertension 12/18/2019 Essential tremor 11/29/2024 Family History Medical History Relation Name Comments Breast cancer Aunt pat maternal Heart attack Father age 80 , 2007, diabetes, CHF, COPD Colon cancer Mother 07/01, [...] care for your loved ones. For example, childrens club attendant or elderly care for an older [...] Sign Reading Time Taken Comments Blood Pressure 118/60 07/14/2025 2:58 PM EDT Pulse 88 07/14/2025 2:58 PM EDT Temperature 35.9 C (96.7 F) 07/14/2025 2:58 PM EDT Respiratory Rate 14 07/14/2025 2:58 PM EDT Oxygen Saturation 98% 07/14/2025 2:58 PM EDT Inhaled Oxygen Concentration - - Weight 57.8 kg (127 lb 6.4 oz) 07/14/2025 2:58 P M EDT Height 160 cm (5' 3 ) 07/14/2025 2:58 PM EDT Body Mass Index 22.57 07/14/2025 2:58 PM EDT Plan of Treatment Upcoming Encounters Date Type Department Care Team (Late st Contact Info) Description 12/02/2025 8:30 AM EDT Office Visit Adult Medicine [address] [phone] Sosa Cueto MD [address] [place], [place] Health Maintenance Due Date Last Done Comments Cervical Cancer Screening: HPV 1976 Colorectal Cancer Screening: Colonoscopy 03/13/2023 03/13/2018 Influenza Vaccine (#1) 2025 , 05/31/2022, 07/02/2021, Additional history exists Osteoporosis Screening (Bone Density Screening) 07/27/2025 07/27/2022, 07/21/2020 Social Influencers of Health Screening 09/05/2025 09/05/2024 Falls Risk Assessment 11/29/2025 11/29/2024, 024 Medicare Annual Wellness Visit 11/29/2025 11/29/2024 Hypertension/CHF/CAD Annual BMP Blood Test 06/02/2026 06/02/2025, 12/02/2024, 03/18/2024 Breast Cancer Screening 09/12/2026 09/12/20, 09/06/2023, 08/30/2022, Additional history exists Pneumococcal Vaccine: 50+ Years (3 of 3 - PCV20 or PCV21) 10/26/2026 10/26/2021, 08/08/2016 DTaP,Tdap,and Td Vaccines (3 - Td or Tdap) 07/18/2028 07/18/2018, 12/26/2007 Cholesterol Screening (Lipid Panel) 06/02/2030 06/02/2025, 07/18/2024 Hepatitis C Screening Addressed 06/17/2013 Overri dden with the intention of not completing the topic COVID-19 Vaccine Discontinued 01/08/2021, 12/11/2020 Depression Screening Completed 11/29/2024 HIB Vaccines Aged [...] age to complete this topic RSV Immunization Adult Patients Discontinued RSV Immunization Patients Under 20 months Aged Out No longer eligible based on patient's age to complete this topic Varicella Vaccines Aged Out No longer eligible based on patient's age to complete this topic Zoster Vaccines Discontinued Procedures Procedure Name Priority Date/Time Associated Diagnosis Comments CULTURE URINE Routine 07/14/2025 3:15 PM EDT Dysuria POC URINE NON-AUTO W/O MICRO Routine 07/14/2025 3:13 PM EDT Dysuria CBC WITH AUTO DIFFERENTIAL Routine 06/02/2025 8:51 AM EDT Vitamin D deficiency Primary hypertension Hypercholesteremia Gastroesophageal reflux disease without esophagitis Essential tremor Chronic obstructive pulmonary disease, unspecified COPD type (CMS/HCC V24, CMS/HCC V28) Low magnesium level Chronic fatigue FERRITIN Routine 06/02/2025 8:51 AM EDT Chronic fatigue IRON AND TIBC Routine 06/02/2025 8:51 AM EDT Chronic fatigue VITAMIN B12 Routine 06/02/2025 8:51 AM EDT Chronic fatigue VITAMIN D 25 HYDROXY Routine 06/02/2025 8:51 AM EDT Chronic fatigue FOLATE Routine 06/02/2025 8:51 AM EDT Chronic fatigue MAGNESIUM Routine 06/02/2025 8:51 AM EDT Low magnesium level Chronic fatigue THYROID STIMULATING HORMONE WITH REFLEX TO FREE T4 AND FREE T3 Routine 06/02/2025 8:51 AM EDT Primary hypertension Essential tremor Chronic fatigue CBC AND DIFFERENTIAL Routine 06/02/2025 8:51 AM EDT Vitamin D deficiency Primary hypertension Hypercholesteremia Gastroesophageal reflux disease without esophagitis Essential tremor Chronic obstructive pulmonary disease, unspecified COPD type (CMS/HCC V24, CMS/HCC V28) Low magnesium level Chronic fatigue COMPREHENSIVE METABOLIC PANEL Routine 06/02/2025 8:51 AM EDT Primary hypertension Hypercholesteremia LIPID PANEL WITH REFLEX TO DIRECT LDL Routine 06/02/2025 8:51 AM EDT Primary hypertension Hypercholesteremia MG MAMMO DIGITAL SCREENING W JOE BILAT Routine 09/12/2024 8:16 AM EST Encounter for screening mammogram for breast cancer DXA BONE DENSITY STUDY 1+ SITS AXIAL SKEL Routine 07/27/2022 2:13 PM EDT Hyperparathyroidism , unspecified ([facility] V24) from Last 3 Months or Most Recently Relevant to Health Maintenance Results * (ABNORMAL) Culture urine (07/14/2025 3:15 PM EDT) [facility] Culture, Urine 10,000-49,000 CFU/mL Escherichia coli(A) KEVYN 07/17/2025 10:24 AM EDT [facility] Comment: The organism value for this result has been updated. These results have been appended to the previously preliminary verified report. Urine Urine specimen obtained by clean catch procedure / Unknown Non-blood Collection / Unknown 07/14/2025 3:15 PM EDT 07/14/2025 3:15 PM EDT Narrative Organism Antibiotic Method Susceptibility Escherichia coli Amoxicillin/Clavulanate KEVYN <=2 ug/ml: Susceptible Escherichia coli Ampicillin/Sulbactam KEVYN <=2 ug/ml: Susceptible Escherichia coli Piperacillin/Tazobactam KEVYN <=4 ug/ml: Susceptible Escherichia coli Cefazolin (Urine) KEVYN <=1 ug/ml: Susceptible Escherichia coli Cefoxitin KEVYN <=4 ug/ml: Susceptible Escherichia coli Ceftazidime KEVYN <=0.5 ug/ml: Susceptible Escherichia coli Ceftriaxone KEVYN <=0.25 ug/ml: Susceptible Escherichia coli Cefepime KEVYN <=0.12 ug/ml: Susceptible Escherichia coli Meropenem KEVYN <=0.25 ug/ml: Susceptible Escherichia coli Amikacin KEVYN 2 ug/ml: Susceptible Escherichia coli Gentamicin KEVYN <=1 ug/ml: Susceptible Escherichia coli Ciprofloxacin KEVYN <=0.06 ug/ml: Susceptible Escherichia coli Levofloxacin KEVYN <=0.12 ug/ml: Susceptible Escherichia coli Nitrofurantoin KEVYN <=16 ug/ml: Susceptible Escherichia coli Trimethoprim/Sulfamethoxazole KEVYN <=20 ug/ml: Susceptible us Sosa Cueto MD LAB MICROBIOLOGY - GENERAL ORDER SANDRA Final Result [facility] [address] [place] [address], [place] [phone] * (ABNORMAL) POC Urine Non-Auto W/O Micro (07/14/2025 3:13 PM EDT) [facility] Leukocytes UA POC 2+(A) Negative Nitrite UA POC Negative Negative Urobilinogen UA POC 0.2 E.U./dL 0.2 E.U./dL, 1.0 E.U./dL, 8 , Unable to interpret due to interfering substances mg/dL Protein UA POC Negative Negative mg/dL PH UA POC 5.0 Blood UA POC Negative Negative Specific [place] UA POC <=1.005 Ketones UA POC Negative Negative Bilirubin UA POC Negative Negative Urine Urine specimen obtained by clean catch procedure / Unknown 07/14/2025 3:13 PM EDT Sosa Cueto MD POINT OF CARE TEST ENTER/EDIT OR DERABLES Final Result * Thyroid stimulating hormone with reflex to free t4 and free t3 (06/02/2025 8:51 AM EDT) [facility] TSH 3.74 0.40 - 4.00 mcIU/mL LAB CHEMISTRY METHOD 06/02/2025 6:34 PM EDT [facility] Blood Venous blood specimen / Unknown Venipuncture / Unknown 06/02/2025 8:51 AM EDT 06/02/2025 8:51 AM EDT Brittny PEDRAZA LAB BLOOD ORDERABLES Final Resul t Performing Organization Address City/[facility]/ZIP Co de Phone Number [facility] [address] [place] [address], [place] [phone] * (ABNORMAL) Lipid panel with reflex to direct LDL (06/02/2025 8:51 AM EDT) [facility] Cholesterol 204(H) 0 - 200 mg/dL LAB CHEMISTRY METHOD 06/02/2025 2:22 PM EDT [facility] Triglycerides 122 0 - 150 mg/dL LAB CHEMISTRY METHOD 06/02/2025 2:22 PM EDT [facility] HDL 65 >=40 mg/dL LAB CHEMISTRY METHOD 06/02/2025 2:22 PM EDT [facility] LDL Calculated 115(H) 0 - 100 mg/dL LAB CHEMISTRY METHOD 06/02/2025 2:22 PM EDT [facility] Comment:Estimated LDL Calcul ated using equation: Total cholesterol - HDL cholesterol - (Triglycerides/5) VLDL Cholesterol Delta 24.4 mg/dL LAB CHEMISTRY METHOD 06/02/2025 2:22 PM EDT [facility] Non HDL Chol. (LDL+VLDL) 139 <145 mg/dL LAB CHEMISTRY METHOD 06/02/2025 2:22 PM EDT [facility] Chol/HDL Ratio 3.1 0.0 - 4.4 LAB CHEMISTRY METHOD 06/02/2025 2:22 PM EDT [facility] Blood Venous blood specimen / Unknown Venipuncture / Unknown 06/02/2025 8:51 AM EDT 06/02/2025 8:51 AM EDT us Brittny PEDRAZA LAB BLOOD ORDERABLES Final Resul t [facility] [address] [place] [address], * (ABNORMAL) CBC auto differential (06/02/2025 8:51 AM EDT) WBC 7.2 4.8 - 10.8 K/[facility] LAB HEMETOLOGY METHOD 06/02/2025 10:22 AM EDT [facility] RBC 4.50 3.80 - 4.80 M/mcL LAB HEMETOLOGY METHOD 06/02/2025 10:22 AM EDT [facility] Hemoglobin 12.9 11.5 - 16.0 g/dL LAB HEMETOLOGY METHOD 06/02/2025 10:22 AM [facility] Hematocrit 39.9 35.0 - 47.0 % LAB HEMETOLOGY METHOD 06/02/2025 10:22 AM [facility] MCV 88.7 79.0 - 98.0 FL LAB HEMETOLOGY METHOD 06/02/2025 10:22 AM [facility] MCH 28.7 27.0 - 32.0 pcg LAB HEMETOLOGY METHOD 06/02/2025 10:22 AM [facility] MCHC 32.3 32.0 - 37.0 g/dL LAB HEMETOLOGY METHOD 06/02/2025 10:22 AM [facility] RDW 12.7 11.0 - 15.0 % LAB HEMETOLOGY METHOD 06/02/2025 10:22 AM [facility] Platelets 415(H) 130 - 400 K/mcL LAB HEMETOLOGY METHOD 06/02/2025 10:22 AM [facility] MPV 8.9 7.0 - 11.0 FL LAB HEMETOLOGY METHOD 06/02/2025 10:22 AM [facility] NRBC 0.0 <1.0 % LAB HEMETOLOGY METHOD 06/02/2025 10:22 AM [facility] NRBC Absolute 0.00 <0.10 K/mcL LAB HEMETOLOGY METHOD 06/02/2025 10:22 AM [facility] Neutrophils Relative 52.5 % LAB HEMETOLOGY METHOD 06/02/2025 10:22 AM [facility] Lymphocytes Relative 35.6 % LAB HEMETOLOGY METHOD 06/02/2025 10:22 AM [facility] Monocytes Relative 9.9 % LAB HEMETOLOGY METHOD 06/02/2025 10:22 AM EDT [facility] Eosinophils Relative 1.3 % LAB HEMETOLOGY METHOD 06/02/2025 10:22 AM EDT [facility] Basophils Relative 0.6 % LAB HEMETOLOGY METHOD 06/02/2025 10:22 AM [facility] Immature Granulocytes Relative 0.1 % LAB HEMETOLOGY METHOD 06/02/2025 10:22 AM EDT [facility] Neutrophils Absolute 3.76 1.50 - 7.00 K/mcL LAB HEMETOLOGY METHOD 06/02/2025 10:22 AM EDT [facility] Lymphocytes Absolute 2.55 1.00 - 5.00 K/mcL LAB HEMETOLOGY METHOD 06/02/2025 10:22 AM [facility] Monocytes Absolute 0.71 0.20 - 1.00 K/mcL LAB HEMETOLOGY METHOD 06/02/2025 10:22 AM EDT [facility] Eosinophils Absolute 0.09 0.00 - 0.50 K/mcL LAB HEMETOLOGY METHOD 06/02[facility]25 [facility] Basophils Absolute 0.04 0.00 - 0.20 K/mcL LAB HEMETOLOGY METHOD 06/02/2025 10:22 AM [facility] Immature Granulocytes Absolute 0.01 0.00 - 0.03 K/mcL LAB HEMETOLOGY METHOD 06/02/2025 10:22 AM EDT [facility] Blood Venous blood specimen / Unknown Venipuncture / Unknown 06/02/2025 8:51 AM EDT 06/02/2025 8:51 AM EDT us Brittny PEDRAZA LAB BLOOD ORDERABLES Final Resul t [facility] [address] [place] [address], * (ABNORMAL) Iron and TIBC (06/02/2025 8:51 AM EDT) [facility] Iron 38(L) 40 - 150 mcg/dL LAB CHEMISTRY METHOD 06/02/2025 2:22 PM EDT [facility] TIBC 372 250 - 450 mcg/dL LAB CHEMISTRY METHOD 06/02/2025 2:22 PM EDT [facility] Iron Saturation 10(L) 15 - 50 % LAB CHEMISTRY METHOD 06/02/2025 2:22 PM EDT [facility] Blood Venous blood specimen / Unknown Venipuncture / Unknown 06/02/2025 8:51 AM EDT 06/02/2025 8:51 AM EDT Brittny PEDRAZA LAB BLOOD ORDERABLES Final Resul t [facility] [address] [place] [address], [place] [phone] * Vitamin D 25 hydroxy (06/02/2025 8:51 AM EDT) [facility] Vit D, 25-Hydroxy 40.2 30.0 - 80.0 ng/mL LAB CHEMISTRY METHOD 06/02/2025 3:57 PM EDT [facility] Blood Venous blood specimen / Unknown Venipuncture / Unknown 06/02/2025 8:51 AM EDT 06/02/2025 8:51 AM EDT Brittny PEDRAZA LAB BLOOD ORDERABLES Final Resul t [facility] [address] [place] [address], [place] [phone] * Magnesium (06/02/2025 8:51 AM EDT) [facility] Magnesium 2.2 1.9 - 2.6 mg/dL LAB CHEMISTRY METHOD 06/02/2025 1:47 PM EDT [facility] Blood Venous blood specimen / Unknown Venipuncture / Unknown 06/02/2025 8:51 AM EDT 06/02/2025 8:51 AM EDT Brittny PEDRAZA LAB BLOOD ORDERABLES Final Resul t Performing Organization Address City/[facility] Co de Phone Number [facility] [address] [place] [address], [place] [phone] * (ABNORMAL) Folate (06/02/2025 8:51 AM EDT) Folate >20.0(H) 2.8 - 17.0 ng/ml LAB CHEMISTRY METHOD 06/02/2025 2:22 PM EDT [facility] Blood Venous blood specimen / Unknown Venipuncture / Unknown 06/02/2025 8:51 AM EDT 06/02/2025 8:51 AM EDT Brittny PEDRAZA LAB BLOOD ORDERABLES Final Resul t Performing Organization Address [facility] de Phone Number [facility] [address] [place] [address], [place] [phone] * Ferritin (06/02/2025 8:51 AM EDT) Ferritin 102 8 - 252 ng/mL LAB CHEMISTRY METHOD 06/02/2025 2:22 PM EDT [facility] Blood Venous blood specimen / Unknown Venipuncture / Unknown 06/02/2025 8:51 AM EDT 06/02/2025 8:51 AM EDT Brittny PEDRAZA LAB BLOOD ORDERABLES Final Resul t Performing Organization Address City/[facility] Co de Phone Number [facility] [address] [place] [address], [place] [phone] * Vitamin B12 (06/02/2025 8:51 AM EDT) [facility] Vitamin B-12 517 250 - 900 pcg/mL LAB CHEMISTRY METHOD 06/02/2025 2:22 PM T [facility] Blood Venous blood specimen / Unknown Venipuncture / Unknown 06/02/2025 8:51 AM EDT 06/02/2025 8:51 AM EDT us Brittny PEDRAZA LAB BLOOD ORDERABLES Final Resul t [facility] [address] [place] [address], [place] [phone] * (ABNORMAL) Comprehensive metabolic panel (06/02/2025 8:51 AM EDT) [facility] Sodium 140 133 - 145 mmol/L LAB CHEMISTRY METHOD 06/02/2025 2:22 PM [facility] Potassium 5.0 3.5 - 5.5 mmol/L LAB CHEMISTRY METHOD 06/02/2025 2:22 PM [facility] Chloride 103 96 - 110 mmol/L LAB CHEMISTRY METHOD 06/02/2025 2:22 PM [facility] CO2 28 21 - 32 mmol/L LAB CHEMISTRY METHOD 06/02/2025 2:22 PM [facility] Anion Gap 9 3 - 11 LAB CHEMISTRY METHOD 06/02/2025 2:22 PM [facility] Glucose 108(H) 70 - 100 mg/dL LAB CHEMISTRY METHOD 06/02/2025 2:22 PM [facility] BUN 9 5 - 25 mg/dL LAB CHEMISTRY METHOD 06/02/2025 2:22 PM [facility] Creatinine 0.82 0.50 - 1.10 mg/dL LAB CHEMISTRY METHOD 06/02/2025 2:22 PM EDT [facility] eGFR 78 >=60 mL/min/1. 73m2 LAB CHEMISTRY METHOD 06/02/2025 2:22 PM T [facility] Comment:Calculation based on the Chronic Kidney Disease Epidemiology Collaboration (CKD-EPI) equation refit without adjustment for race. BUN/Creatinine Ratio 11.0 LAB CHEMISTRY METHOD 06/02/2025 2:22 PM T [facility] Calcium 9.7 8.5 - 10.5 mg/dL LAB CHEMISTRY METHOD 06/02/2025 2:22 PM [facility] AST (SGOT) 20 10 - 42 unit/L LAB CHEMISTRY METHOD 06/02/2025 2:22 PM [facility] ALT (SGPT) 31 10 - 60 unit/L LAB CHEMISTRY METHOD 06/02/2025 2:22 PM [facility] Alkaline Phosphatase 73 42 - 121 unit/L LAB CHEMISTRY METHOD 06/02/2025 2:22 PM [facility] Total Protein 7.6 6.0 - 8.0 g/dL LAB CHEMISTRY METHOD 06/02/2025 2:22 PM [facility] Albumin 4.1 3.2 - 5.0 g/dL LAB CHEMISTRY METHOD 06/02/2025 2:22 PM [facility] Total Bilirubin 0.4 0.0 - 1.4 mg/dL LAB CHEMISTRY METHOD 06/02/2025 2:22 PM [facility] Blood Venous blood specimen / Unknown Venipuncture / Unknown 06/02/2025 8:51 AM EDT 06/02/2025 8:51 AM EDT us Brittny PEDRAZA LAB BLOOD ORDERABLES Final Resul t [facility] [address] [place] [address], [place] [phone] * MG Mammo Digital Screening w Joe [...] is recommended in 1 year. Mammo Location: [facility], [address] [place] [address], [id number], . -------- FINAL REPORT -------- Dictated By: Reba Scott Dictated Date: 09/12/2024 12:13 ET Assigned Physician: Reba Scott Reviewed and Electronically Signed By: Reba Scott Signed Date: 09/12/2024 12:18 ET Workstation ID: [id number] Transcribed By: Self Edit Transcribed Date: 09/12/2024 [...] is recommended in 1 year. Mammo Location: [facility], [address] [place] [address], [address], . -------- FINAL REPORT -------- Dictated By: Reba Scott Dictated Date: 09/12/2024 12:13 ET Assigned Physician: Reba Scott Reviewed and Electronically Signed By: Reba Scott Signed Date: 09/12/2024 12:18 ET Workstation ID: [id number] Transcribed By: Self Edit Transcribed Date: 09/12/2024 12:13 ET Sosa Cueto MD IMG BI PROCEDURES Final Result * DXA BONE [...] to have osteoporosis by WHO criteria. [facility] Department of Internal Medicine recommends [...] alternative screening schedule based on abdi Sainz., [facility] October 13, 2011 for patients [...] to have osteoporosis by WHO criteria. [facility] Department of Internal Medicine recommendsusing [...] alternative screening schedule based on abdi Sainz., NEJMJanuary 2011 for patients with osteopenia (based on hip BMD T-score) is as follows: * advanced osteopenia (T scores -2.00 to -2.49), BMD testing every year * moderate osteopenia (T scores -1.50 to -1.99), BMD testing every 5years mild osteopenia or normal BMD (T scores -1.50 and higher), BMD testingevery 15 years Charlette PEDRAZA IM DXA PROCEDURES Final Re sult from Last 3 Months or Most Recently Relevant to Health Maintenance Insurance [facility] MEDICARE Member Subscriber Plan / Payer (Ef fective 2022-Present) Name:PATTI ZAYAS Relation to Subscriber:Self Name:Patti Zayas Payer ID:[id number] Group ID:[id number] Type:Not on file Address: [place] [address] [address] [address] Care Teams Accessories Repairer Relationship Specialty Start Date End Date Sosa Cueto MD [address] [place] [phone] PCP - General 01/01/01
== END 2025-08-15 15:13 | disposition home or self-care (01) ==
LOC: HO.HPS 14:25
PROVIDERS: PCP Internal Medicine; Visit Provider Hospitalist
DX: J44.1 Chronic obstructive pulmonary disease with (acute) exacerbation (principal); A31.9 Mycobacterial infection, unspecified
CPT/HCPCS: 99214; G2211

== ENCOUNTER → 2025-08-15 14:25 | Outpatient (BNVA) | payer OTHER, SELFPAY | PROVIDERS: PCP Internal Medicine; Visit Provider Hospitalist | DX: J44.1 Chronic obstructive pulmonary disease with (acute) exacerbation (principal); A31.9 Mycobacterial infection, unspecified | CPT/HCPCS: 99212 ==

== ENCOUNTER 2025-09-03 10:49 | Outpatient (REF) | payer OTHER, MEDICARE, MEDICAID, SELFPAY ==
--- NOTE | ~2025-09-03 | XR_ITS ---
EXAMINATION: XR CHEST CLINICAL INFORMATION: J44.0 - Chronic obstructive pulmonary disease with (acute) lower respira... COMPARISON: None available. TECHNIQUE: 2 views of the chest were obtained. FINDINGS: The cardiomediastinal silhouette is within normal limits. The lungs are hyperinflated.. Linear atelectasis/scarring in the right lung apex. There is no focal consolidation, edema, or effusion. No pneumothorax. No acute osseous abnormality. Thoracic spine spondylosis. Surgical clips in the upper abdomen. XR/XR chest 2V IMPRESSION: Hyperinflated lungs correlating with clinical history of COPD. No acute findings Electronically signed by: Alex Patioñ MD 09/03/2025 02:49 PM EST
[2025-09-03 11:04] LABS: MANUAL DIFF FLAG NO
[2025-09-03 11:07] LABS: Venous Blood Gas Refer to POC result
[2025-09-03 11:15] LABS: VBG HCO3 31 mmol/L (22-26); VBG O2 % Saturation 48.0 %
[2025-09-03 11:55] LABS: Hematocrit 42.1 % (37.0-47.0); Hemoglobin 13.6 g/dl (12.0-16.0); Imm Gran Abs Auto 0.01 X10*3/uL (0.00-0.03); Imm Gran Pct Auto 0.1 % (0.0-0.4); Lymphocytes Absolute Auto 2.5 X10*3/uL (1.2-4.9); Mean Corpuscular HGB Conc 32.3 g/dl (31.0-35.0); Mean Corpuscular Hemoglobin 28.3 pg (27.0-33.0); Mean Corpuscular Volume 87.7 fL (80.0-98.0); NRBC Abs Auto 0.000 X10*3/uL (0.0-0.012); NRBC Pct Auto 0.0 /100WBC (0.0-0.2); Platelet Count 429 X10*3/uL (160-400); Red Blood Count 4.80 X10*6/uL (4.20-5.50); White Blood Count 6.7 X10*3/uL (4.8-10.8)
[2025-09-03 12:41] LABS: Anion Gap 11 (12-20); Blood Urea Nitrogen 8 mg/dL (9-16); Calcium 9.5 mg/dL (8.4-10.2); Carbon Dioxide 33 mmol/L (22-29); Chloride 103 mmol/L (96-108); Estimated Glomerular Filt Rate > 60; Potassium 4.6 mmol/L (3.3-5.1); Sodium 142 mmol/L (135-145)
[2025-09-04 08:06] LABS: Theophylline 1.4
== END 2025-09-03 10:50 | disposition home or self-care (01) ==
LOC: HO.XRAY 10:49
PROVIDERS: PCP Internal Medicine; Visit Provider Hospitalist
DX: J44.0 Chronic obstructive pulmonary disease with (acute) lower respiratory infection (principal); R91.8 Other nonspecific abnormal finding of lung field
CPT/HCPCS: 36415; 71046; 80048; 80198; 82785; 82803; 85025; 85652; 86331; 86606; 86609

== ENCOUNTER → 2025-09-03 11:04 | Outpatient (BNV) | payer OTHER, MEDICAID, MEDICARE, SELFPAY | PROVIDERS: PCP Internal Medicine; Visit Provider Radiology Diagnostic Ultrasound | DX: J44.0 Chronic obstructive pulmonary disease with (acute) lower respiratory infection (principal) | CPT/HCPCS: 71046 ==